=== PATIENT | female | born 1950 | race Caucasian/White ===

== ENCOUNTER 2018-02-12 07:49 | Day surgery (SDC) | payer OTHER ==
[2018-02-12] MEDS ORDERED: IOHEXOL 350 MG/ML 100 ML BTL (for Cath Lab) OTHER (07:50)
[2018-02-12] MEDS: IOHEXOL 350 MG/ML 50 ML BTL (for RAD DIAG) IVCONTRAST (07:50)
[2018-02-12] MEDS ORDERED: SODIUM CHLOR 0.9% 1000 ML INJ 1,000 ML IV (08:30)
[2018-02-12 09:16] LABS: AUTOMATED NEUTROPHIL # 6.8 TH/MM3 (1.8-7.7); BASOPHIL # 0.1 TH/MM3 (0-0.2); BASOPHIL % 0.6 % (0.0-2.0); EOSINOPHIL # 0.2 TH/MM3 (0-0.4); EOSINOPHIL % 1.8 % (0.0-4.0); HEMATOCRIT 38.9 % (35.0-46.0); HEMO FLAGS DIFF FINAL; HEMOGLOBIN 12.7 GM/DL (11.6-15.3); LYMPH % 21.3 % (9.0-44.0); LYMPHOCYTE # 2.1 TH/MM3 (1.0-4.8); MEAN CELL VOLUME 87.7 FL (80.0-100.0); MEAN CORPUSCULAR HEMOGLOBIN 28.7 PG (27.0-34.0); MEAN CORPUSCULAR HGB CONC 32.8 % (32.0-36.0); MEAN PLATELET VOLUME 7.2 FL (7.0-11.0); MONO % 6.2 % (0.0-8.0); MONOCYTE # 0.6 TH/MM3 (0-0.9); NEUT % 70.1 % (16.0-70.0); PLATELET COUNT 289 TH/MM3 (150-450); RED BLOOD COUNT 4.43 MIL/MM3 (4.00-5.30); RED CELL DISTRIBUTION WIDTH 15.6 % (11.6-17.2); WHITE BLOOD COUNT 9.6 TH/MM3 (4.0-11.0)
[2018-02-12 09:22] LABS: APTT (PATIENT) 25.9 SEC (24.3-30.1)
[2018-02-12] MEDS ORDERED: HEPARIN-NS/PF FLUSH BAG 2,000 ML IV FLUSH (09:28)
[2018-02-12] MEDS: HEPARIN SODIUM - IV 10,000 UNITS/10 ML VIAL (09:29)
[2018-02-12 09:30] LABS: ANION GAP 8 MEQ/L (5-15); BICARBONATE 30.1 MEQ/L (21.0-32.0); BLOOD UREA NITROGEN 19 MG/DL (7-18); CALCIUM 9.1 MG/DL (8.5-10.1); CHLORIDE 104 MEQ/L (98-107); CREATININE 0.45 MG/DL (0.50-1.00); GLOMERULAR FILTRATION RATE 139 ML/MIN (>89); GLUCOSE,RANDOM 94 MG/DL (74-106); POTASSIUM 3.9 MEQ/L (3.5-5.1); SODIUM (NA) 142 MEQ/L (136-145)
[2018-02-12] MEDS: NITROGLYCERIN INJ 5 ML (09:31)
[2018-02-12] MEDS: MIDAZOLAM HCL 2 MG/2 ML VIAL (09:43)
[2018-02-12] MEDS: hydrALAZINE HCL 20 MG/ML VIAL (10:59)
[2018-02-12] MEDS ORDERED: MISC INFORMATION XX (11:30)
[2018-02-12 12:17] LABS: ALBUMIN 4.1 GM/DL (3.4-5.0)
[2018-02-12 17:36] LABS: BILIRUBIN, URINE NEG (NEG); BLOOD, URINE NEG (NEG); COMMENT (UR) CULT NOT INDICATED; CULTURE IF INDICATED CULT NOT INDICATED; GLUCOSE,URINE NEG (NEG); KETONE, URINE NEG (NEG); NITRITE,URINE NEG (NEG); SQUAMOUS EPITHELIAL CELL URINE <1 /hpf (0-5); URINE COLOR LIGHT-YELLOW (YELLW/STRAW); URINE LEUKOCYTE ESTERASE SMALL (NEG)
[2018-02-12 19:14] LABS: MRSA PCR SURVEILLANCE MRSA NOT DETECTED (NOT DETECT)
== END 2018-02-12 18:29 | disposition home or self-care (01) ==
LOC: HDOC 07:49 → HDIC 07:51 → HDOC 18:29
DX: I25.10 Atherosclerotic heart disease of native coronary artery without angina pectoris (principal); I35.0 Nonrheumatic aortic (valve) stenosis; I27.20 Pulmonary hypertension, unspecified; I34.0 Nonrheumatic mitral (valve) insufficiency; I65.29 Occlusion and stenosis of unspecified carotid artery; M85.80 Other specified disorders of bone density and structure, unspecified site; E78.5 Hyperlipidemia, unspecified; G20 Parkinson's disease; I45.10 Unspecified right bundle-branch block; Z95.1 Presence of aortocoronary bypass graft; Z96.651 Presence of right artificial knee joint
CPT/HCPCS: 71046; 74174; 80048; 81001; 82040; 82810; 85025; 85610; 85730; 86850; 86900; 86901; 87641; 93005; 93461; 94010; 99152; 99153

== ENCOUNTER → 2018-03-31 | Outpatient (CLI) | payer OTHER ==
[~2018-03-31] MED LIST: AMLO2.5T PO; ASPI81TA23 PO; CARB25TA9 PO; ISOS30TA3 PO; NIAC500 PO; NITR0.4S SL; PRAM0.25 PO
[2018-03-31 12:59] LABS: AUTOMATED NEUTROPHIL # 8.2 TH/MM3 (1.8-7.7); BASOPHIL # 0.1 TH/MM3 (0-0.2); BASOPHIL % 0.6 % (0.0-2.0); EOSINOPHIL # 0.2 TH/MM3 (0-0.4); EOSINOPHIL % 1.4 % (0.0-4.0); HEMATOCRIT 38.8 % (35.0-46.0); HEMOGLOBIN 12.5 GM/DL (11.6-15.3); LYMPHOCYTE # 2.3 TH/MM3 (1.0-4.8); MEAN CELL VOLUME 90.1 FL (80.0-100.0); MEAN CORPUSCULAR HEMOGLOBIN 29.2 PG (27.0-34.0); MEAN CORPUSCULAR HGB CONC 32.4 % (32.0-36.0); MEAN PLATELET VOLUME 7.5 FL (7.0-11.0); MONO % 7.1 % (0.0-8.0); MONOCYTE # 0.8 TH/MM3 (0-0.9); NEUT % 70.9 % (16.0-70.0); PLATELET COUNT 329 TH/MM3 (150-450); RED CELL DISTRIBUTION WIDTH 14.9 % (11.6-17.2); WHITE BLOOD COUNT 11.5 TH/MM3 (4.0-11.0)
[2018-03-31 13:12] LABS: PROTHROMBIN TIME - PATIENT 10.5 SEC (9.8-11.6)
[2018-03-31 13:51] LABS: BICARBONATE 29.1 MEQ/L (21.0-32.0); CREATININE 0.5 MG/DL (0.50-1.00)
== END ==
LOC: CLAB 12:27
PROVIDERS: ATTEND Internal Medicine
DX: Z01.812 Encounter for preprocedural laboratory examination (principal); I35.0 Nonrheumatic aortic (valve) stenosis
CPT/HCPCS: 36415; 80048; 85025; 85610; 86850; 86900; 86901

== ENCOUNTER 2018-04-02 10:11 | Inpatient (IN) | payer OTHER, MEDICARE ==
[~2018-04-02] VITALS: Ht 147.3 cm; Wt 79.0 kg
[2018-04-02] VITALS (7 sets, daily range): BP systolic 103–165; BP diastolic 45–85; PULSE 69–113; RESP 16–22; TEMP 97.4–98.9; O2SAT 94–99
[2018-04-02] MEDS ORDERED: HEPARIN SODIUM - IV 10,000 UNITS/10 ML VIAL ONE (10:53)
[2018-04-02] MEDS ORDERED: PROTAMINE SULFATE 50 MG/5 ML VIAL ONE (10:53)
[2018-04-02] MEDS ORDERED: ASPIRIN 325 MG TAB PO SCH (11:00)
[2018-04-02] MEDS ORDERED: CHLORHEXIDINE GLUCONATE 2 % 1 PACK (2 CLOTHS) TOPICAL PRN ×2 (11:00)
[2018-04-02] MEDS ORDERED: ceFAZolin 2 GM PREMIX 50 ML IV PRN (11:00)
[2018-04-02] MEDS ORDERED: SODIUM CHLORID 0.9% 500 ML IV PRN (11:00)
[2018-04-02] MEDS ORDERED: POVIDONE IODINE 5% (ANTISEPSIS KIT) 4 APPLICATIONS EACH NARE PRN (11:00)
[2018-04-02] MEDS ORDERED: POVIDONE IODINE 5% (ANTISEPSIS KIT) EACH NARE PRN (11:00)
[2018-04-02] MEDS ORDERED: LACTATED RINGER'S 1000 ML IV PRN (11:00)
[2018-04-02] MEDS ORDERED: METOPROLOL TARTRATE 25 MG TAB PO PRN (11:00)
[2018-04-02] MEDS ORDERED: MUPIROCIN 2% OINT 1 APPLIC/GM SYRINGE EACH NARE PRN (11:00)
[2018-04-02] MEDS ORDERED: GLYCOPYRROLATE 1 MG/5 ML SYRINGE IV PUSH ONE (12:00)
[2018-04-02] MEDS ORDERED: LIDOCAINE HCL 1% PF 5 ML SYRINGE OTHER ONE (12:00)
[2018-04-02] MEDS ORDERED: SODIUM CHLORID 0.9% 500 ML INJ 1,000 ML IV ONE (12:00)
[2018-04-02] MEDS ORDERED: NORMOSOL R INJ 1,000 ML IV ONE (12:00)
[2018-04-02] MEDS ORDERED: SODIUM CHLOR 0.9% 250 ML INJ 250 ML IV ONE (12:00)
[2018-04-02] MEDS ORDERED: PHENYLEPH/NS 1000 MCG/10 ML SYR IV ONE (12:00)
[2018-04-02] MEDS ORDERED: LACTATED RINGER'S 1000 ML INJ 1,000 ML IV ONE (12:00)
[2018-04-02] MEDS ORDERED: ROCURONIUM INJ 50 MG/5 ML SYRINGE IV PUSH ONE (12:00)
[2018-04-02] MEDS ORDERED: NEOSTIGMINE 5 MG/5 ML SYRINGE IV PUSH ONE (12:00)
[2018-04-02] MEDS ORDERED: PROPOFOL 200 MG/20 ML AMP IV ONE (12:00)
[2018-04-02] MEDS ORDERED: IOHEXOL 350 MG/ML 100 ML BTL (for Cath Lab) OTHER ONE (12:48)
[2018-04-02] MEDS ORDERED: IOHEXOL 350 MG/ML 50 ML BTL (for Cath Lab) OTHER ONE (12:48)
--- NOTE | 2018-04-02 13:43 | MH ---
cc: Osorio Villalta MD DATE OF ADMISSION: 04/02/2018 INDICATION: Severe aortic stenosis. HISTORY OF PRESENT ILLNESS: This is a 67-year-old female with severe aortic stenosis and coronary artery disease with prior coronary artery bypass surgery. She follows in the outpatient setting with a [facility] and last saw Dr. Diego, who performed a heart catheterization. She was referred for consideration of repeat sternotomy with aortic valve replacement, but given high risk features, was recommended for transcatheter aortic valve replacement. She is now here for a scheduled procedure. PAST MEDICAL HISTORY: Aortic stenosis, coronary artery disease, carotid stenosis, asthma, hyperlipidemia, mild mitral regurgitation, osteoarthritis, osteopenia, right bundle branch block. PAST SURGICAL HISTORY: Coronary artery disease with coronary artery bypass surgery x2. ALLERGIES: ATORVASTATIN, ZITHROMAX. MEDICATIONS: 1. Amlodipine. 2. Aspirin. 3. Sinemet. 4. Isosorbide. 5. Nitroglycerin. 6. Pramipexole. FAMILY HISTORY: Denies any family history of early cardiac disease or sudden cardiac . SOCIAL HISTORY: Denies any alcohol, tobacco or drug use. REVIEW OF SYSTEMS: A 12-point review of systems was performed, negative unless otherwise noted in History Of Present Illness. PHYSICAL EXAMINATION: GENERAL: Alert and oriented x3, in no acute distress. HEENT: Shows pupils reactive to light and accommodation. Extraocular movements intact. NECK: No elevation in jugular venous distention. No thyromegaly or lymphadenopathy. No carotid bruits. LUNGS: Clear to auscultation bilaterally. CARDIOVASCULAR: Regular rhythm without murmurs, rubs or gallops. ABDOMEN: Nontender, nondistended with good bowel sounds. No hepatosplenomegaly. EXTREMITIES: Show no clubbing, cyanosis or edema. Good peripheral pulses. NEUROLOGIC: Cranial nerves intact. Motor, sensory grossly intact. PREOPERATIVE LABORATORY WORKUP: STS score 3.4%. BMI 36.5. She has 2/4 for frailty score. Electrocardiogram shows right bundle branch block and sinus rhythm. Pulmonary function tests: FEV1 of 0.93, performed on 02/12/2018 consistent with severely reduced lung disease. Echocardiogram from 11/18/2017 shows a mean gradient of 30 mmHg with a calculated aortic valve area of 0.9 cm2 and mean aortic valve gradient per cardiac catheterization was 45 mmHg. Cardiac catheterization shows widely patent bypass grafts with severe [place] 2-vessel coronary artery disease. CT analysis from 02/12/2018 shows a short annulus diameter of 19.7, long annulus diameter of 22.5 mm, annular area of 350 mm. Sinus of Valsalva diameter 28.8 mm, sinotubular junction 27.2 mm. Left coronary height is 10 mm. Right coronary height is 15.2 mm. Minimal luminal diameter for iliac arteries are on the right 6.8 mm, on the left, 6.4 mm. ASSESSMENT: 1. Severe aortic valve stenosis. 2. History of coronary artery disease. PLAN: The patient is considered intermediate risk for aortic valve replacement, according to STS, frailty and comorbidities. We will plan for an Flores BING S3, 23 mm bioprosthetic transcatheter aortic valve replacement through a right common femoral artery approach. Risks, benefits, and alternatives were discussed with the patient. The patient understood and consented to the procedure. MD XIMENA Summers/SB , 01:18 PM , 01:42 PM
[2018-04-02] MEDS ORDERED: IOHEXOL 350 MG/ML 100 ML BTL (for RAD DIAG) IVCONTRAST ONE (14:25)
--- NOTE | 2018-04-02 14:36 | PD.OP ---
cc: Amara Naylor MD; Maritza Cortes MD; Osorio Villalta MD Operative Report Date of Surgery: Apr 02, 2018 Preoperative Diagnosis: Postoperative Diagnosis: Procedure: 1. Transcatheter Aortic Valve Replacement (TAVR) with an Flores 23 mm Zak 3 Tissue Valve. 2. Balloon Aortic Valvuloplasty 3. Aortogram. 4. Percutaneous Bilateral Common Femoral Artery Access 5. Perclose closure of Right Common Femoral artery. 6. Vascade closure of Left Common Femoral artery. 7. Fluoroscopy Surgeon: Maritza Villalta Powerhouse Mechanic Apprentice(s): None Operation and Findings: PREOPERATIVE DIAGNOSIS: 1. Severe Symptomatic Aortic stenosis. 2. CHF 3. Coronary Artery Disease - s/p CABG 4. Mild Aortic Insufficiency POSTOPERATIVE DIAGNOSIS: Same OPERATION PERFORMED: 1. Transcatheter Aortic Valve Replacement (TAVR) with an Flores 23 mm Zak 3 Tissue Valve. 2. Balloon Aortic Valvuloplasty 3. Aortogram. 4. Percutaneous Bilateral Common Femoral Artery Access 5. Perclose closure of Right Common Femoral artery. 6. Vascade closure of Left Common Femoral artery. 7. Fluoroscopy SURGEON: Maritza Cortes MD CO-SURGEON: Osorio Villalta MD REAL ESTATE INVESTOR SURGEON: None COMMUTATOR PRESSER: ROCIO Gan MD ANESTHESIA: GETA PROCEDURE: The risks, benefits, complications, treatment options, and expected outcomes were discussed with the patient. The possibilities of reaction to medication, pulmonary aspiration, perforation of viscus, bleeding, recurrent infection, the need for additional procedures, failure to diagnose a condition, and creating a complication requiring transfusion or operation were discussed with the patient. The patient concurred with the proposed plan, giving informed consent. The site of surgery properly noted/marked. The patient was taken to the hybrid operating room and the procedure verified as Transcatheter Aortic Valve Replacement. A Time Out was held and the above information confirmed. Standard monitoring lines and Tong catheter were placed. General anesthesia was induced. The patient was prepped and draped in a sterile fashion. Initially, the left femoral arterial access was acquired using a Seldinger percutaneous technique. The details of this procedure were dictated under separate note by cardiology. Once a pigtail was positioned in the aortic annulus and a temporary transvenous pacemaker wire was placed in the right ventricular apex and tested, the right femoral artery was accessed using a needle followed by a guidewire under fluoroscopic guidance. The patient was heparinized and two Perclose devices deployed for later closure. Serial dilators were used to dilate the left femoral artery to 14 Setswana caliber. The Flores sheath was then inserted into the external iliac artery up to the distal abdominal aorta. Arch aortography was performed to define the implant view. A balloon aortic valvuloplasty was then performed using a 20 x 4 balloon with rapid pacing. A 23 Flores Zak 3 transcatheter aortic valve was then positioned in the annulus and deployed with the patient being rapidly paced. Following deployment , the valve apparatus was withdrawn and arch aortography and KAM were performed to assess the valve. The valve had no significant perivalvular leaks. Gradients were then measured and the sheath was removed with securing the Perclose sutures for hemostasis. Protamine was administered. The left Arterial access sites were closed using the Vascade device. Sterile dressings were placed. At the end of the operation, all sponge, instruments, and needle counts were correct. The patient was transferred to the CVICU in stable condition. Findings: Trace PVL Implants: 23 Zak 3 tissue valve Complications: Heart block Disposition: to CVICU in stable condition Maritza Cortes MD Apr 02, 2018 14:36
[2018-04-02] MEDS ORDERED: SODIUM CHLOR 0.9% 1000 ML INJ 1,000 ML IV SCH (14:46)
[2018-04-02] MEDS ORDERED: GLUCAGON 1 MG/ML VIAL OTHER PRN (15:00)
[2018-04-02] MEDS ORDERED: ATROPINE SULFATE 1 MG/ML VIAL IV PUSH PRN (15:00)
[2018-04-02] MEDS ORDERED: MISC INFORMATION OTHER SCH (15:00)
[2018-04-02] MEDS ORDERED: ACETAMINOPHEN 325 MG TAB PO PRN (15:00)
[2018-04-02] MEDS ORDERED: DEXTROSE 50% IN WATER 50 ML VIAL(D50) IV PUSH PRN (15:00)
[2018-04-02] MEDS ORDERED: CLOPIDOGREL 300 MG TAB PO ONE (15:00)
[2018-04-02] MEDS ORDERED: MIDAZOLAM HCL 2 MG/2 ML VIAL ONE (15:04)
--- NOTE | 2018-04-02 15:49 | RADRPT ---
EXAM DATE: 04/02/2018 3:43 PM EDT AGE/SEX: 67 years / Female INDICATIONS: Shortness of breath. CLINICAL DATA: This is the patient's initial encounter. Patient reports that signs and symptoms have been present for 1 day and indicates a pain score of 2/10. MEDICAL/SURGICAL HISTORY: Cardiovascular disease. Pacemaker. CABG. COMPARISON: No prior exams available for comparison. FINDINGS: A single AP view of the chest demonstrates the lungs to be symmetrically aerated without evidence of mass, infiltrate or effusion. Mild cardiomegaly. Central line in good position. Sternal wires previo us bypass are noted. Osseous structures are intact. CONCLUSION: Mild cardiomegaly without failure. Electronically signed by: Bravo Samaniego MD 04/02/2018 3:48 PM EDT
--- NOTE | 2018-04-02 15:54 | PD.CONS ---
[facility] Service Critical Care Medicine Consult Requested By Dr. Villalta Reason for Consult perioperative management of medical comorbidities Primary Care Physician Jessica Jin MD History of Present Illness This is a 67-year-old female with a history of severe aortic stenosis who presents for elective transcatheter aortic valve replacement. She underwent uncomplicated procedure via common iliac access. Intraoperatively she did go into third-degree heart block. Elective physiology consult was obtained. She arrives to the CVICU extubated but arousing from anesthesia. Due to her somnolence arousing from anesthesia a full review of systems is unobtainable. Limited review systems is negative for sore throat, chest pain, shortness of breath, nausea, vomiting, headache. She does endorse having difficulty laying still and keeping her legs still. Remainder of the review of systems is negative unless otherwise stated. Review of Systems ROS Limited review of systems is negative unless stated in the HPI. ROS is limited by arousing from anesthesia. Past Family Social History Allergies: Coded Allergies: azithromycin (Unverified Allergy, Severe, ANGIOEDEMA, 04/02/18) atorvastatin (Verified Allergy, Intermediate, 04/02/18) Past Medical History Severe symptomatic aortic stenosis Coronary artery disease Carotid stenosis Asthma Hyperlipidemia Mild mitral regurgitation Osteoarthritis Osteopenia Right bundle branch block Parkinson's disease Past Surgical History Prior CABG 2 Reported Medications Pramipexole (Pramipexole Dihydrochloride) 0.25 Mg Tab 0.25 Mg PO TID Nitrostat SL (Nitroglycerin) 0.4 Mg Subl 0.4 Mg SL DIRECTED PRN 1 tablet under the tongue as needed for chest pain. Repeat every 5 minutes for a total of 3 DOSES or call 911 if NO relief. Isosorbide Mononitrate ER (Isosorbide Mononitrate) 30 Mg Kerline 30 Mg PO DAILY Niaspan (Niacin) 500 Mg Tab 500 Mg PO HS Carbidopa-Levodopa 25-100 Mg Tab 1 Tab PO Q8HR Aspirin EC (Aspirin) 81 Mg Tabdr 81 Mg PO DAILY Amlodipine (Amlodipine Besylate) 2.5 Mg Tab 2.5 Mg PO DAILY Active Ordered Medications See MAR Family History No family history of cardiac disease or sudden cardiac Social History Denies tobacco, EtOH, other drugs. Physical Exam Vital Signs Vital Signs Date Time Temp Pulse Resp B/P (MAP) Pulse Ox O2 Delivery O2 Flow Rate FiO2 04/02/18 10:55 98.0 91 18 119/76 (90) 95 Physical Exam GENERAL: Middle-aged female who appears much older than stated age, lying in bed , arousing from anesthesia HEENT: Normocephalic. Atraumatic. Pupils equal, round, reactive, conjugate. Mucous membranes are moist NECK: Trachea is midline. There is no JVD. right IJ introducer sheath with transvenous pacer in place, site is clean and dry, dressing intact. CHEST: unlabored. equal chest rise. nc o2. CARDIOVASCULAR: normal rate, regular rhythm. Transvenous pacer is set VVI at a backup rate of 60. She is intermittently paced. Underlying rhythm appears to be third-degree AV block with a ventricular rate in the 40s. ABDOMEN: Soft, nontender, nondistended. No guarding. MUSCULOSKELETAL: Pulses 2+. No peripheral edema. bilateral groin sites are clean and dry, no evidence of hematoma, dressing intact. distal LE pulses are Dopplerable. NEUROLOGICAL: RASS -2. Arousing from anesthesia. follows commands. moves all extremities. no focal deficits. Assessment and Plan Assessment and Plan Assessment: 67-year-old female postop day 0 status post transcatheter aortic valve replacement. Clinically on pathway with the exception of new third- degree AV block. Will await elective physiology consultation she may need permanent pacemaker versus EP study. s/p TAVR 04/02 via common iliac access - anticoagulation per Dr. Villalta - [facility] - close uop monitoring - OOB after flat time HTN - tonight prn clevidepine for goal sbp < 180 - in the AM, transition to home meds 3rd degree AVB - EP consultation - continue transvenous pacer VVI @ 60 CAD - continue ASA Hyperlipidemia - continue home niaspan Parkinson's - continue home sinemet pulmonary toilet OOB advance diet unless EP needs patient NPO for procedure Critical care medicine will continue to follow as long as patient remains in the CVICU. Zuhair Steel MD Apr 02, 2018 15:54
[2018-04-02] MEDS ORDERED: ACETAMINOPHEN 1000 MG/100 ML 100 ML IV ONE (16:00)
--- NOTE | 2018-04-02 16:45 | MA ---
cc: Osorio Villalta MD DATE: 04/02/2018 DATE OF OPERATIVE PROCEDURE: 04/02/2015 INDICATION: Severe aortic valve stenosis. SALES SERVICE PROFESSIONAL: Angel Villalta MD, [facility] PRIMARY SCREED PERSON: Dr. Maritza Cortes. PROCEDURES PERFORMED: 1. Fluoroscopy with interpretation. 2. Left heart catheterization. 3. Ascending aortography. 4. Temporary transvenous pacemaker placement. 5. Transesophageal echocardiogram. 6. Aortic balloon valvuloplasty. 7. Transcatheter aortic valve replacement with an Flores BING S3, 23 mm bioprosthetic valve. METHOD: Risks, benefits and alternatives were discussed with the patient. The patient understood and consented to the procedure. The patient was brought into the catheterization lab, placed on the catheterization table. Bilateral groins were prepped and draped in the usual sterile fashion. The left groin was anesthetized with 2% lidocaine. The left common femoral artery was cannulated. A 5-German, 11 cm sheath was placed without difficulty. The right common femoral artery was cannulated under fluoroscopic and angiographic guidance. A micropuncture sheath was placed, followed by 8-German sheath and then followed by the 14 German Flores delivery sheath to the level of the descending aorta. TEMPORARY TRANSVENOUS PACEMAKER PLACEMENT: Right internal jugular vein was placed and a temporary transvenous pacemaker advanced to the right ventricular apex. Good pacing and capture was confirmed. TRANSESOPHAGEAL ECHOCARDIOGRAM: Transesophageal echocardiogram will be reported separately. ASCENDING AORTOGRAPHY: A 5-German angled pigtail catheter was advanced to the noncoronary cusp and a view angle of left anterior oblique 3 and 22 cranial was utilized for Parallax of the three aortic cusps. The ascending aorta was not significantly dilated. AORTIC BALLOON VALVULOPLASTY: A 6-German AL1 catheter was advanced to the ascending aorta. An Amplatz Super Stiff wire was advanced across the aortic valve. The AL1 catheter was advanced across the aortic valve. A 260 cm standard J-wire was then advanced into the left ventricle and a pigtail catheter 5-German was then advanced into the left ventricular apex and switched out for a 0.03-inch Confida Bumprtronic wire. A 20 mm x 40 mm Flores aortic valvuloplasty balloon was then advanced across the aortic valve. Balloon inflation was performed with rapid ventricular pacing at 180 beats per minute. Repeat transesophageal echocardiogram showed moderate aortic regurgitation and no pericardial effusion. TRANSCATHETER AORTIC VALVE REPLACEMENT: Flores S3, 23 mm valve was then prepped and advanced into the delivery sheath to the descending aorta. The valve was then advanced across the aortic valve and confirmed appropriate positioning. The valve was then deployed. Repeat transesophageal echocardiogram showed no paravalvular leak with no significant gradient present. The patient tolerated the procedure well. The right groin was closed with 2 Perclose device and the left groin closed with a 5-German VASCADE device. Heparin was administered throughout the entire procedure to maintain appropriate anticoagulation. POST-VALVE DEPLOYMENT INTRAOPERATIVE TRANSESOPHAGEAL ECHOCARDIOGRAM: Aortic valve area of 1.4 cm2. Post-implant mean aortic gradient 4 mmHg. Post-implant peak velocity 1.44 meters per second and there was no aortic insufficiency or paravalvular leak noted. CONCLUSIONS: 1. Successful transcatheter aortic valve replacement with an Flores S3 bioprosthetic aortic valve. 2. Successful aortic valvuloplasty. PLAN: The patient will be monitored closely for any postprocedural complications. Hopefully, this will translate well to symptomatic improvement. The patient did have transient complete heart block requiring intermittent pacing. We will consult Electrophysiology for consideration of a permanent pacemaker. We will obtain a limited transthoracic echocardiogram tomorrow morning. MD XIMENA Summers/SB , 03:38 PM , 04:44 PM
--- NOTE | 2018-04-02 17:09 | PD.PROCEDR ---
Procedure Note Procedure Procedure: Transesophageal Echocardiography Diagnosis: Severe aortic stenosis Indications: Perioperative planning for transcatheter aortic valve replacement Consent: Obtained Anesthesia: General endotracheal anesthesia Description of the Procedure: The patient was sedated and mechanically ventilated. The echo probe was inserted easily and without resistance. At the conclusion of the procedure, the echo probe was removed. Please see detailed echocardiogram report for formal findings. Preliminary Findings (not confirmed): pre-procedure: 1) mildly depressed LV systolic function 2) grossly normal RV function 3) severe aortic stenosis 4) mild aortic regurgitation 5) mild mitral regurgitation 6) no pericardial effusion 7) no evidence of intra-atrial shunting by color flow Doppler Post-procedure: 1) s/p successful placement of transcatheter aortic valve 2) no evidence of bioprosthetic valve stenosis 3) no perivalvular leak 4) no pericardial effusion The patient tolerated the procedure well with no hemodynamic instability. There were no immediate complications noted. There was minimal EBL. I personally performed the procedure. Zuhair Steel MD Apr 02, 2018 17:09
[2018-04-02 17:13] LABS: HEMATOCRIT 36.8 % (35.0-46.0); MEAN CELL VOLUME 89.1 FL (80.0-100.0); MEAN CORPUSCULAR HEMOGLOBIN 29.1 PG (27.0-34.0); MEAN CORPUSCULAR HGB CONC 32.6 % (32.0-36.0); MEAN PLATELET VOLUME 7.6 FL (7.0-11.0); PLATELET COUNT 274 TH/MM3 (150-450); RED BLOOD COUNT 4.13 MIL/MM3 (4.00-5.30); WHITE BLOOD COUNT 16.2 TH/MM3 (4.0-11.0)
[2018-04-02 17:24] LABS: INTERNATIONAL NORMALIZED RATIO 1.1 RATIO; PROTHROMBIN TIME - PATIENT 10.9 SEC (9.8-11.6)
[2018-04-02 17:39] LABS: CALCIUM 7.9 MG/DL (8.5-10.1); CREATININE 0.5 MG/DL (0.50-1.00)
[2018-04-02] MEDS: PRAMIPEXOLE DIHYDROCHLORIDE 0.25 MG TAB PO SCH (18:57)
--- NOTE | 2018-04-02 19:55 | EKG ---
Date Performed: 04/02/2018 Time Performed: 11:11:38 PTAGE: 67 years EKG: Sinus tachycardia. Right bundle branch block Abnormal ECG PREVIOUS TRACING : 02/12/2018 09.15 Since the previous tracing, no significant change noted DOCTOR: Karuna Gregg Interpretating Date/Time 04/02/2018 19:54:45
[2018-04-02] MEDS: CARBIDOPA/LEVODOPA 25 MG/100 MG TAB PO SCH (20:59)
[2018-04-02] MEDS: NIACIN 500 MG EXTENDED RELEASE TAB PO SCH (20:59)
[2018-04-02] MEDS: ACETAMINOPHEN 1000 MG/100 ML 100 ML IV PRN (21:00)
[2018-04-02] MEDS ORDERED: POTASSIUM PHOSPHATE MONOBASIC 500 MG TAB PO PRN (21:15)
[2018-04-02] MEDS ORDERED: POTASSIUM CHLOR 20 MEQ PREMIX 100 ML IV PRN ×2 (21:15)
[2018-04-02] MEDS ORDERED: POTASSIUM CHLORIDE 20 MEQ CONTROLLED RELEASE TAB PO ONE (21:15)
[2018-04-02] MEDS ORDERED: POTASSIUM CHLOR 40 MEQ PREMIX 100 ML IV PRN ×2 (21:15)
[2018-04-02] MEDS ORDERED: MAGNESIUM SULFATE INJ 2 GM in SODIUM CHLORIDE 0.9% INJ 96 ML IV PRN (21:15)
[2018-04-02] MEDS ORDERED: MAGNESIUM SULFATE INJ 4 GM in SODIUM CHLORIDE 0.9% INJ 92 ML IV PRN (21:15)
[2018-04-02] MEDS ORDERED: MAGNESIUM SULFATE 1 GM PREMIX 100 ML IV ONE (21:15)
[2018-04-02] MEDS ORDERED: POTASSIUM CHLORIDE 25 MEQ EFFERVESCENT TAB PO PRN (21:15)
[2018-04-02] MEDS ORDERED: MAGNESIUM OXIDE 400 MG TAB PO PRN (21:15)
[2018-04-02] MEDS ORDERED: SODIUM PHOSPHATE INJ 30 MMOL in SODIUM CHLOR 0.9% 250 ML INJ 240 ML IV PRN (21:15)
[2018-04-02] MEDS ORDERED: POTASSIUM PHOSPHATE MONOBASIC 500 MG TAB PO/TUBE PRN (21:15)
[2018-04-02] MEDS ORDERED: POTASSIUM PHOSPHATE INJ 30 MMOL in SODIUM CHLOR 0.9% 250 ML INJ 250 ML IV PRN (21:15)
[2018-04-02] MEDS: BENZOCAINE-MENTHOL (SUGAR FREE) 15 MG-3.6 MG LOZENGE BUCCAL PRN (22:15)
[2018-04-02] MEDS: POTASSIUM CHLOR 10 MEQ PREMIX 100 ML IV SCH ×2 (22:15→22:32)
[2018-04-03] VITALS (16 sets, daily range): BP systolic 94–155; BP diastolic 50–83; PULSE 72–120; RESP 16–22; TEMP 97.6–98.4; O2SAT 92–100
[2018-04-03] MEDS: POTASSIUM CHLOR 10 MEQ PREMIX 100 ML IV SCH (00:23)
[2018-04-03] MEDS: SODIUM CHLOR 0.9% 1000 ML 1,000 ML IV SCH ×3 (03:00→19:00)
[2018-04-03] MEDS: ACETAMINOPHEN 1000 MG/100 ML 100 ML IV PRN ×2 (03:37→18:24)
[2018-04-03] MEDS: BENZOCAINE-MENTHOL (SUGAR FREE) 15 MG-3.6 MG LOZENGE BUCCAL PRN (03:38)
[2018-04-03 04:35] LABS: HEMATOCRIT 34.5 % (35.0-46.0); HEMOGLOBIN 11.4 GM/DL (11.6-15.3); MEAN CELL VOLUME 88.4 FL (80.0-100.0); MEAN CORPUSCULAR HEMOGLOBIN 29.1 PG (27.0-34.0); MEAN CORPUSCULAR HGB CONC 32.9 % (32.0-36.0); MEAN PLATELET VOLUME 7.2 FL (7.0-11.0); PLATELET COUNT 235 TH/MM3 (150-450); RED BLOOD COUNT 3.91 MIL/MM3 (4.00-5.30); RED CELL DISTRIBUTION WIDTH 14.8 % (11.6-17.2); WHITE BLOOD COUNT 12.6 TH/MM3 (4.0-11.0)
[2018-04-03 04:52] LABS: BICARBONATE 29.5 MEQ/L (21.0-32.0); CALCIUM 8.1 MG/DL (8.5-10.1); CREATININE 0.34 MG/DL (0.50-1.00); MAGNESIUM 1.9 MG/DL (1.5-2.5); PHOSPHORUS 2.8 MG/DL (2.5-4.9)
[2018-04-03] MEDS: CARBIDOPA/LEVODOPA 25 MG/100 MG TAB PO SCH ×3 (06:36→22:14)
--- NOTE | 2018-04-03 07:49 | PD.CARD.PN ---
Subjective Subjective Remarks RN at bedside. Doing well overnight. NSR overnight. EKG this a.m. with NSR and RBBB. Going for EP study later this morning. Patient denies any chest pain or shortness of breath. Has some throat and right groin soreness. (Georges Mars) Objective Medications Current Medications Medications (Trade) Dose Ordered Sig/Phong Route Start Time Stop Time Status Last Admin Sodium Chloride 1,000 ml @ 125 mls/hr Q8H IV 04/02/18 11:00 Cefazolin Sodium/ Dextrose 50 ml @ 100 mls/hr [facility] PRN IV 04/02/18 11:00 04/05/18 10:59 04/02/18 13:28 (Betadine 5% Antisepsis Kit) 1 applic [facility] PRN EACH NARE 04/02/18 11:00 04/05/18 10:59 (Bactroban Nasal 2% Oint) 1 applic [facility] PRN EACH NARE 04/02/18 11:00 04/05/18 10:59 (Chlorhexidine 2% Cloth) 3 pack [facility] PRN TOPICAL 04/02/18 11:00 04/05/18 10:59 04/02/18 10:59 (Aspirin) 325 mg [facility] PO 04/02/18 11:00 04/05/18 10:59 Lactated Ringer's 1,000 ml @ 30 mls/hr Q24H PRN IV 04/02/18 11:00 04/05/18 10:59 Sodium Chloride 500 ml @ 30 mls/hr [id number] PRN IV 04/02/18 11:00 04/05/18 10:59 (Lopressor) 25 mg [facility] PRN PO 04/02/18 11:00 04/05/18 10:59 (Betadine 5% Antisepsis Kit) 1 applic [facility] PRN EACH NARE 04/02/18 11:00 04/05/18 10:59 04/02/18 10:58 (Chlorhexidine 2% Cloth) 3 pack [facility] PRN TOPICAL 04/02/18 11:00 04/05/18 10:59 (Cepacol Extra Lior (Sugar Free)) 1 lozenge Q3H PRN BUCCAL 04/02/18 15:00 04/03/18 14:59 04/03/18 03:38 (Atropine Inj) 0.5 mg UNSCH PRN IV PUSH 04/02/18 15:00 04/03/18 14:59 Miscellaneous Information 1 UNSCH X1 OTHER 04/02/18 15:00 04/04/18 14:59 (Aspirin Chew) 81 mg DAILY PO 04/03/18 09:00 (Plavix) 75 mg DAILY PO 04/03/18 09:00 (D50w (Vial) Inj) 50 ml UNSCH PRN IV PUSH 04/02/18 15:00 (Glucagon Inj) 1 mg UNSCH PRN OTHER 04/02/18 15:00 (Norvasc) 2.5 mg DAILY PO 04/03/18 09:00 (Sinemet 25-100 Mg) 1 tab Q8HR PO 04/02/18 22:00 04/03/18 06:36 (Imdur) 30 mg DAILY PO 04/03/18 09:00 (Slo-Niacin) 500 mg HS PO 04/02/18 21:00 04/02/18 20:59 (Mirapex) 0.25 mg TID PO 04/02/18 18:00 04/02/18 18:57 Clevidipine 50 ml @ 2 mls/hr TITRATE PRN IV 04/02/18 16:00 04/02/18 15:25 Acetaminophen 100 ml @ 400 mls/hr Q6H PRN IV 04/02/18 20:15 04/03/18 03:37 Potassium Chloride 100 ml @ 50 mls/hr Q2H PRN IV 04/02/18 21:15 Potassium Chloride 100 ml @ 50 mls/hr Q2H PRN IV 04/02/18 21:15 (K-Lyte Cl Eff) 50 meq UNSCH PRN PO 04/02/18 21:15 Potassium Chloride 100 ml @ 25 mls/hr UNSCH PRN IV 04/02/18 21:15 Potassium Chloride 100 ml @ 50 mls/hr Q2H PRN IV 04/02/18 21:15 Magnesium Sulfate 4 gm/Sodium Chloride 100 ml @ 50 mls/hr UNSCH PRN IV 04/02/18 21:15 (Mag-Ox) 800 mg UNSCH PRN PO 04/02/18 21:15 Magnesium Sulfate 2 gm/Sodium Chloride 100 ml @ 50 mls/hr UNSCH PRN IV 04/02/18 21:15 (K-Phos) 2,000 mg Q4H PRN PO 04/02/18 21:15 Sodium Phosphate 30 mmol/Sodium Chloride 250 ml @ 42 mls/hr UNSCH PRN IV 04/02/18 21:15 (K-Phos) 2,000 mg UNSCH PRN PO/TUBE 04/02/18 21:15 Potassium Phosphate 30 mmol/ Sodium Chloride 260 ml @ 42 mls/hr UNSCH PRN IV 04/02/18 21:15 Vital Signs / I&O Vital Signs Date Time Temp Pulse Resp B/P (MAP) Pulse Ox O2 Delivery O2 Flow Rate FiO2 04/03/18 04:07 22 04/03/18 03:00 86 04/03/18 03:00 86 04/03/18 03:00 98.3 86 22 128/83 (98) 99 125/53 (77) 04/02/18 23:00 84 04/02/18 23:00 98.9 84 22 117/62 (80) 99 103/45 (64) 04/02/18 23:00 84 04/02/18 22:35 99 Nasal Cannula 2.50 04/02/18 19:00 113 04/02/18 19:00 113 04/02/18 19:00 98.9 113 22 144/85 (104) 99 131/66 (87) 04/02/18 17:00 98 04/02/18 17:00 64 105/47 04/02/18 16:25 60 04/02/18 15:30 94 04/02/18 15:25 94 211/116 04/02/18 15:00 81 04/02/18 15:00 69 04/02/18 15:00 97.4 81 18 142/82 (102) 94 150/80 (103) 04/02/18 14:50 69 04/02/18 14:50 97.4 69 16 161/81 (107) 95 165/74 (104) 04/02/18 13:25 98 211/116 04/02/18 10:55 98.0 91 18 119/76 (90) 95 I/O 04/02/18 04/02/18 04/02/18 04/03/18 04/03/18 04/03/18 07:00 15:00 23:00 07:00 15:00 23:00 Intake Total 800 ml 220 ml 490 ml Output Total 350 ml 550 ml 1375 ml Balance 450 ml -330 ml -885 ml Intake Oral 120 ml 240 ml IV Total 100 ml 250 ml Other 800 ml Output Urine Total 150 ml 550 ml 1375 ml Estimated Blood Loss 200 ml Physical Exam GENERAL: Well-developed well-nourished. In no acute distress. NECK: No carotid bruits. No JVD. Right jugular line in place. CARDIOVASCULAR: Regular rate and rhythm. [place] heart sounds appreciated. Right groin with no swelling or ecchymosis, mild tenderness peer RESPIRATORY: No accessory muscle use. Clear to auscultation. Breath sounds equal bilaterally. MUSCULOSKELETAL: No clubbing or cyanosis. No edema. NEUROLOGICAL: Awake and alert. Normal speech. Laboratory Laboratory Tests Test 04/02/18 16:45 04/03/18 04:05 White Blood Count 16.2 TH/MM3 12.6 TH/MM3 Red Blood Count 4.13 MIL/MM3 3.91 MIL/MM3 Hemoglobin 12.0 GM/DL 11.4 GM/DL Hematocrit 36.8 % 34.5 % Mean Corpuscular Volume 89.1 FL 88.4 FL Mean Corpuscular Hemoglobin 29.1 PG 29.1 PG Mean Corpuscular Hemoglobin Concent 32.6 % 32.9 % Red Cell Distribution Width 15.0 % 14.8 % Platelet Count 274 TH/MM3 235 TH/MM3 Mean Platelet Volume 7.6 FL 7.2 FL Prothrombin Time 10.9 SEC Prothromb Time International Ratio 1.1 RATIO Activated Partial Thromboplast Time 26.7 SEC Blood Urea Nitrogen 16 MG/DL 9 MG/DL Creatinine 0.50 MG/DL 0.34 MG/DL Random Glucose 127 MG/DL 94 MG/DL Calcium Level 7.9 MG/DL 8.1 MG/DL Sodium Level 141 MEQ/L 140 MEQ/L Potassium Level 3.2 MEQ/L 3.8 MEQ/L Chloride Level 104 MEQ/L 104 MEQ/L Carbon Dioxide Level 26.0 MEQ/L 29.5 MEQ/L Anion Gap 11 MEQ/L 7 MEQ/L Estimat Glomerular Filtration Rate 123 ML/MIN 192 ML/MIN Phosphorus Level 2.8 MG/DL Magnesium Level 1.9 MG/DL Imaging Last Impressions Chest X-Ray 04/02/18 0000 Signed Impressions: CONCLUSION: Mild cardiomegaly without failure. (Georges Mars) Assessment and Plan Assessment and Plan 67-year-old female past medical history of severe now s/p successful TAVR The patient did develop transient heart block during the procedure requiring transvenous pacing. Currently NSR w/ RBBB; going for EP study today to decide + /- PPM. Limited echo today Discussed Condition With Patient, RN, Dr. Villalta (Georges Mars) Assessment and Plan severe - TAVR acute on chronic diastolic CHF - gentle diuresis. EP evaluation today and probable PPM possible DC planning for tomorrow (Osorio Villalta MD) Georges Mars Apr 03, 2018 07:49 Osorio Villalta MD Apr 03, 2018 08:51
[2018-04-03] MEDS: ASPIRIN 81 MG CHEW TAB PO SCH (08:59)
[2018-04-03] MEDS: CLOPIDOGREL 75 MG TAB PO SCH (08:59)
[2018-04-03] MEDS: PRAMIPEXOLE DIHYDROCHLORIDE 0.25 MG TAB PO SCH ×3 (08:59→18:12)
[2018-04-03] MEDS: ISOSORBIDE MONONITRATE 30 MG CR TAB (IMDUR) PO SCH (09:00)
[2018-04-03] MEDS ORDERED: ASPIRIN EC 81 MG TABEC PO SCH (09:00)
[2018-04-03] MEDS ORDERED: amLODIPine BESYLATE 5 MG TAB PO SCH (09:00)
[2018-04-03] MEDS: FUROSEMIDE 20 MG TAB PO SCH (09:01)
--- NOTE | 2018-04-03 09:17 | PD.CAR.PN ---
CVT Progress Note Subjective/Hospital Course: 67-year-old female with a history of severe aortic stenosis who presents for elective transcatheter aortic valve replacement. She underwent uncomplicated procedure via common iliac access. Per [facility] intraoperatively she did go into third-degree heart block. Elective physiology consult was placed Past Medical History: Severe symptomatic aortic stenosis, Coronary artery disease, Carotid stenosis, Asthma, Hyperlipidemia, Mild mitral regurgitation, Osteoarthritis, Osteopenia, Right bundle branch block, Parkinson's disease Prior CABG 2 04/03 pt for EP study this am still intermittent paced / BP stable up in chair , on room air Objective: GENERAL: SKIN: Warm and dry. Dressing both groins intact , no hematoma HEAD: Normocephalic. EYES: No scleral icterus. No injection or drainage. NECK: Supple, trachea midline. No JVD or lymphadenopathy. CARDIOVASCULAR: Regular rate and rhythm without murmurs, gallops, or rubs. intermittent paced, temp pacer in place , RESPIRATORY: Breath sounds equal bilaterally. No accessory muscle use. GASTROINTESTINAL: Abdomen soft, non-tender, nondistended. MUSCULOSKELETAL: No cyanosis, or edema. BACK: Nontender without obvious deformity. No CVA tenderness. Vital Signs Date Time Temp Pulse Resp B/P (MAP) Pulse Ox O2 Delivery O2 Flow Rate FiO2 04/03/18 08:00 72 04/03/18 08:00 98.4 72 20 124/50 (74) 92 Arterial Line 04/03/18 07:00 84 04/03/18 04:07 22 04/03/18 03:00 86 04/03/18 03:00 86 04/03/18 03:00 98.3 86 22 128/83 (98) 99 125/53 (77) 04/02/18 23:00 84 04/02/18 23:00 98.9 84 22 117/62 (80) 99 103/45 (64) 04/02/18 23:00 84 04/02/18 22:35 99 Nasal Cannula 2.50 04/02/18 19:00 113 04/02/18 19:00 113 04/02/18 19:00 98.9 113 22 144/85 (104) 99 131/66 (87) 04/02/18 17:00 98 04/02/18 17:00 64 105/47 04/02/18 16:25 60 04/02/18 15:30 94 04/02/18 15:25 94 211/116 04/02/18 15:00 81 04/02/18 15:00 69 04/02/18 15:00 97.4 81 18 142/82 (102) 94 150/80 (103) 04/02/18 14:50 69 04/02/18 14:50 97.4 69 16 161/81 (107) 95 165/74 (104) 04/02/18 13:25 98 211/116 04/02/18 10:55 98.0 91 18 119/76 (90) 95 Labs: Laboratory Tests Test 04/03/18 04:05 White Blood Count 12.6 TH/MM3 (4.0-11.0) Red Blood Count 3.91 MIL/MM3 (4.00-5.30) Hemoglobin 11.4 GM/DL (11.6-15.3) Hematocrit 34.5 % (35.0-46.0) Mean Corpuscular Volume 88.4 FL (80.0-100.0) Mean Corpuscular Hemoglobin 29.1 PG (27.0-34.0) Mean Corpuscular Hemoglobin Concent 32.9 % (32.0-36.0) Red Cell Distribution Width 14.8 % (11.6-17.2) Platelet Count 235 TH/MM3 (150-450) Mean Platelet Volume 7.2 FL (7.0-11.0) Blood Urea Nitrogen 9 MG/DL (7-18) Creatinine 0.34 MG/DL (0.50-1.00) Random Glucose 94 MG/DL (74-106) Calcium Level 8.1 MG/DL (8.5-10.1) Phosphorus Level 2.8 MG/DL (2.5-4.9) Magnesium Level 1.9 MG/DL (1.5-2.5) Sodium Level 140 MEQ/L (136-145) Potassium Level 3.8 MEQ/L (3.5-5.1) Chloride Level 104 MEQ/L (98-107) Carbon Dioxide Level 29.5 MEQ/L (21.0-32.0) Anion Gap 7 MEQ/L (5-15) Estimat Glomerular Filtration Rate 192 ML/MIN (>89) Result Diagram: 04/03/1840404/03/18 040 (1) S/P TAVR (transcatheter aortic valve replacement) Plan: Procedure: 1. Transcatheter Aortic Valve Replacement (TAVR) with an Flores 23 mm Zak 3 Tissue Valve. 2. Balloon Aortic Valvuloplasty 3. Aortogram. 4. Percutaneous Bilateral Common Femoral Artery Access 5. Perclose closure of Right Common Femoral artery. 6. Vascade closure of Left Common Femoral artery. ASA, Plavix for EP study today will defer further orders/ and discharge to Dr Villalta will see prn (2) Aortic stenosis Riut Fermin Apr 03, 2018 09:17
[2018-04-03] MEDS ORDERED: POVIDONE IODINE 5% (ANTISEPSIS KIT) 4 APPLICATIONS EACH NARE SCH (10:00)
[2018-04-03] MEDS ORDERED: CHLORHEXIDINE GLUCONATE 2 % 1 PACK (2 CLOTHS) TOP SCH (10:00)
[2018-04-03] MEDS ORDERED: MUPIROCIN 2% OINT 1 APPLIC/GM SYR NASAL SCH (10:00)
--- NOTE | 2018-04-03 10:21 | MB ---
cc: Vinayak Fontanez MD,Jessica Steel,Zuhair Villalta,Osorio Watson MD DATE: 04/03/2018 REASON FOR CONSULTATION: AV block. HISTORY OF PRESENT ILLNESS: Mrs. Tapia is a 57-year-old female with aortic stenosis, status post TAVR. During the procedure, she developed complete AV block. There is a long first degree AV block at this point, also. I was consulted for evaluation for pacer insertion. The chart was reviewed. The patient was evaluated. ALLERGIES: ATORVASTATIN, ZITHROMAX. SOCIAL HISTORY: Negative for smoking and drinking. FAMILY HISTORY: Noncontributory to her current medical condition. MEDICATIONS: 1. Plavix. 2. Aspirin. 3. Amlodipine 2.5 mg a day. 4. Carbidopa/levodopa 25/100 three times a day. 5. Imdur 30 mg a day. REVIEW OF SYSTEMS: Currently, she refers no chest pain or chest discomfort. No fever. PHYSICAL EXAMINATION: GENERAL: Alert, fully alert, oriented in bed. She has some slight tremor also. VITAL SIGNS: Blood pressure 124/50, pulse around 70, respiratory rate 18. NECK: The right jugular area with central access with a temporary pacemaker. LUNGS: Ventilated. CARDIOVASCULAR: S1, S2. Regular. ABDOMEN: Obese. No mass. EXTREMITIES: No edema. LABORATORY DATA: Electrocardiogram at baseline shows sinus rhythm, right bundle branch block with a first degree AV block, also. There is a significant change in the new electrocardiogram post-procedure. The first-degree of loss or is more pronounced at this point on the echocardiogram was post-procedure. ASSESSMENT AND RECOMMENDATIONS: Ms. Tapia has complete AV block during the above deployment. She continued even after the procedure. Apparently conduction resumed during the night, but because the patient has AV block and the OK interval is more prolonged, by guidelines she will need a pacemaker. The risk of AV block is very high. The risks, the nature and the benefits of the procedure were clearly stated to her. The risks include pneumothorax, cardiac perforation, stroke and even . She understood and agreed to proceed. Procedure will be performed during hospitalization. Vinayak Fontanez MD HS/DL , 10:03 AM , 10:20 AM
[2018-04-03] MEDS ORDERED: FAMOTIDINE 20 MG/2 ML VIAL ONE (10:29)
[2018-04-03] MEDS ORDERED: LIDOCAINE HCL 2% 20 ML VIAL ONE (10:53)
[2018-04-03] MEDS ORDERED: VANCOMYCIN HCL 1000 MG VIAL ONE (10:54)
[2018-04-03] MEDS ORDERED: ceFAZolin INJ 1,000 MG VIAL ONE (10:54)
[2018-04-03] MEDS ORDERED: SODIUM CHLOR 0.9% 250 ML INJ 250 ML ONE (10:54)
[2018-04-03] MEDS ORDERED: VANCOMYCIN 500 MG VIAL ONE (10:54)
--- NOTE | 2018-04-03 11:05 | ECHRPT ---
Indication: EF, S/P TAVR CONCLUSIONS Normal left ventricular size. Mild concentric left ventricular hypertrophy. The left ventricular systolic function is low normal with an estimated ejection fraction in the rang e of 50- 55%. The left atrial size is mildly dilated. Status-post percutaneous aortic valve replacement. Aortic valve mean gradient is 16 mmHg. There is mild tricuspid valve regurgitation. The estimated pulmonary arterial pressure is 38.1 mmHg. BP: / HR: Rhythm: Atrial fibrillation, Atrial flut ter MEASUREMENTS (Male / Female) Normal Values Technical Quality:Fair 2D ECHO LV Diastolic Diameter PLAX 4.0 cm 4.2 - 5.9 / 3.9 - 5.3 cm LV Systolic Diameter PLAX 3.1 cm IVS Diastolic Thickness 1.2 cm 0.6 - 1.0 / 0.6 - 0.9 cm LVPW Diastolic Thickness 1.2 cm 0.6 - 1.0 / 0.6 - 0.9 cm LV Relative Wall Thickness 0.6 RV Internal Dim ED PLAX 2.9 cm LVOT Diameter 1.8 cm Aortic Root Diameter 2.5 cm LA Systolic Diameter LX 4.5 cm 3.0 - 4.0 / 2.7 - 3.8 cm DOPPLER AV Peak Velocity 273.0 cm/s AV Peak Gradient 29.8 mmHg AV Mean Gradient 16.0 mmHg AV Velocity Time Integral 55.0 cm LVOT Peak Velocity 69.9 cm/s LVOT Peak Gradient 2.0 mmHg LVOT Velocity Time Integral 16.2 cm AV Area Cont Eq vti 0.7 cm AV Area Cont Eq pk 0.7 cm TR Peak Velocity 265.0 cm/s TR Peak Gradient 28.1 mmHg Right Atrial Pressure 10.0 mmHg Pulmonary Artery Systolic Pressu 38.1 mmHg Right Ventricular Systolic Press 38.1 mmHg FINDINGS LEFT VENTRICLE Normal left ventricular size. Mild concentric left ventricular hypertrophy. The left ventricular systolic function is low normal with an estimated ejection fraction in the rang e of 50- 55%. RIGHT VENTRICLE Normal right ventricular size and systolic function. LEFT ATRIUM The left atrial size is mildly dilated. RIGHT ATRIUM The right atrial size is normal. ATRIAL SEPTUM Normal atrial septal thickness without atrial level shunting by limited color doppler interrogation. AORTA The aortic root and proximal ascending aorta are normal in size on limited imaging. MITRAL VALVE Structurally normal mitral valve. No mitral valve stenosis or regurgitation. AORTIC VALVE Status-post percutaneous aortic valve replacement. Aortic valve mean gradient is 16 mmHg. No paravalvular leak. No aortic valve insufficiency. TRICUSPID VALVE There is mild tricuspid valve regurgitation. The estimated pulmonary arterial pressure is 38.1 mmHg. PULMONARY VALVE No pulmonary valve regurgitation or stenosis. VESSELS The inferior vena cava is normal in size. PERICARDIUM No pericardial effusion. Osorio Villalta MD, FACC (Electronically Signed) Final Date:03 April 2018 11:04
--- NOTE | 2018-04-03 11:52 | PD.CARD ---
DUAL PPM IMPLANTATION PROCEDURE DATE: Apr 03, 2018 DUAL PPM IMPLANTATION PROCEDURE: Dual chamber permanent pacemaker implantation. INDICATIONS FOR PROCEDURE: Ms. Tapia is a 67 -year-old female SP TAVR, complete AV block was referred for pacer insertion. The risks, the nature and the benefit of the procedure were clearly stated to her . The risks include pneumothorax, cardiac perforation, stroke and even . She understood and agreed to proceed. PROCEDURE After written informed consent was obtained, the patient was transferred to the EP lab where she was prepped and draped in the usual sterile fashion. Conscious sedation was initiated and maintained throughout the procedure by the anesthesiologist. Once sedation was verified, the left infraclavicular area was with 2% Xylocaine. Using modified Seldinger technique, the left subclavian vein was cannulated on two occasions and two guidewires were advanced. Then, using a #11 blade scalpel, a 2 cm was made two fingerbreadths below the left clavicle. This incision was then taken down through the deep fascial layer using Bovie cautery and blunt dissection. Into the inferomedial direction, device pocket was dissected, then the wire was dissected into the pocket. A 2- 0 Vicryl suture was placed around the wire to prevent backbleeding. At this point, over the lateral wire, an 7-Micronesian dilator and introducer was advanced. As the dilator and wire were removed, an active fixation right ventricular pacing and sensing lead was advanced. After adequate pacing and sensing thresholds were obtained, the lead was secured in the pocket using 2-0 Ethibond suture. Then, over the remaining wire, an 7-Micronesian dilator and introducer was advanced. As the dilator and wire were removed, an active fixation right atrial pacing and sensing lead was advanced. After adequate pacing and sensing thresholds were obtained, the lead was secured into the pocket using 2-0 Ethibond suture. At that point, the pocket was copiously irrigated using antibiotic solution. This was connected to the generator and placed into the pocket. I did proceed with wound closure. The deep fascial layer was approximated using 2-0 Vicryl suture in a continuous fashion. The subcutaneous layer was approximated with 2-0 Vicryl suture in a continuous fashion. The subcuticular layer was approximated with 2-0 Vicryl suture in a continuous fashion. Dermabond adhesive was applied to the wound followed by sterile pressure dressing. There was no complication. The patient tolerated procedure. Blood loss minimal. IMPLANTED HARDWARE The permanent pacemaker is a [employer]. Model # NO2508 serial number [id number]. The right atrial pacing and sensing lead is a [employer] model number 2088TC-52, serial number [id number]. The right ventricular pacing and sensing lead is a [employer] model number 2088TC- 58, serial number [id number]. THRESHOLDS The right atrial pacing threshold in the bipolar mode was 0.75 V @ 0.4ms. milliseconds, lead impedance 490 ohms and P-wave at 3.3 millivolts. The right ventricular pacing threshold in the bipolar mode was 0.V @ 0.4 milliseconds, lead impedance 730 ohms and R-wave at the 5.8 millivolts. SETTINGS The device was set in the DDD 60, upper limit 120 beats per minute. Hysteresis and mode switch are on. CONCLUSIONS: Successful permanent pacemaker implantation, COMMENT AND RECOMMENDATION The patient will be transferred to the telemetry unit. He will be observed. When stable, he can be discharged home. Vinayak Fontanez MD Apr 03, 2018 11:52
--- NOTE | 2018-04-03 11:54 | CATHPROC ---
Patient Name: MADELINE CHAVEZ Study #: [id number] Initial MD: Vinayak Fontanez Date of : 1950 Study Date: 04/03/2018 Cardiac Catheterization Report 04/03/2018 12:07:30 PM Financial #: [id number] 1 of 9 Patient Name: MADELINE CHAVEZ Study #: [id number] Initial MD: Vinayak Fontanez Date of : 1950 Study Date: 04/03/2018 Entire Case Report Patient Information Patient Name MADELINE CHAVEZ Date of 1950 Age 67 years Financial # [id number] Gender F AlternateID Lab Number 6 Room Number 446 Height (in) 58.0 Height (cm) 147.3 BSA 1.72 Weight (lbs) 174.9 Weight (kg) 79.5 Patient Address/Phone Number Home Address [facility] Home Phone Number [facility] [address] Study Information Study Number Admission Scheduled Start Study Start [id number] Apr 02 2018 10:11AM 04/03/2018 Apr 03 2018 10:39AM [place] [facility] Cardiac Pacer/ICD Admit Source Facility Department Other [facility] - Case Management Rn Physician and Clinical Staff Initial Vinayak Morales [place] Operator Santy Sandoval RCIS(BS) Other Anesthesia, ORDNANCE MECHANIC Other Hawa Leslie,JIMENEZ Recorder Mary Lou Andrews RN Scrub Sri Reid,RT(R) Procedures Performed Procedure Lead Insertion 04/03/2018 12:07:30 PM Financial #: [id number] 2 of 9 Patient Name: MADELINE CHAVEZ Study #: [id number] Initial MD: Vinayak Fontanez Date of : 1950 Study Date: 04/03/2018 Equipment Time Mechanical Applications Engineer Description Size Mfg Part Number Used/Scraped DERMABOND, ADHESIVE SKIN [id number] 11:07 CORDIS/PACER * Used GLUE MINI *[id number] 11:07 SCL Elements acquired by [employer] BLANKET,WARM AIR CCL * Used *[id number] TP-1103 11:07 MEDLINE INDUSTRIES SUTURE, STRIP PLUS 1/2" * Used *[id number] 11:07 MEDLINE PACER RAMIREZ, LIMB * 2530 *[id number] Used [id number] 11:07 MEDLINE PACER PACK, PACER CUSTOM * Used *[id number] 11:10 [employer] PACER SAFE SHEATH, FR7, 13CM FR 7 CLS-1007 Used 11:10 [employer] MEDICAL PACER SAFE SHEATH, FR7, 13CM FR 7 CLS-1007 Used 11:08 Needle Sponge Count 2 22 Used 11:08 Needle Sponge Count 30 1 Used 11:08 Needle Sponge Count 4 4 Used SUTURE, 0 ETHIBOND [CT1] (CX21D), 8pk SUTURE, 2-0 VICRYL [CT1] (CSF809Y) SUTURE, 2-0 VICRYL [CT1] (TOX221Q) LEAD, TENDRIL STS 2088TC 11:28 [facility] 52CM 2088TC/52CM Used 52CM LEAD, TENDRIL STS 2088TC 11:23 [facility] 58CM 2088TC/58CM Used 58CM PACEMAKER, ASSURITY DR STEVENS 11:32 [facility] [id number] [facility] PAD, ELECTROSURGICAL 11:07 * [id number] *[id number] Used SURGICAL GROUNDING ORANGE 0465-3931 11:07 [employer]Dyve LUPIS. / * Used *[id number] Equipment Model, Serial, Lot Number and Expiration Data Description Model Number Serial Number Lot Number Expiration Date LEAD, TENDRIL STS 2088TC 58CM 2088TC-58 [id number] 02-03-2021 PACEMAKER, ASSURITY DR STEVENS MRI [id number] 09-05-2019 Insurance Information Insurance Payor Private Health Insurance Third Constitution Party Third Constitution Party Number HUMANA GOLD PLUS O HUMLogisticare History: Allergies Allergy Reaction azithromycin ANGIOEDEMA atorvastatin 04/03/2018 12:07:30 PM Financial #: [id number] 3 of 9 Patient Name: MADELINE CHAVEZ Study #: [id number] Initial MD: Vinayak Fontanez Date of : 1950 Study Date: 04/03/2018 History: Risk Factors Hypertension Dyslipidemia Yes Yes Prior CABG Prior CABGDate Yes 10/07/1997 Chronic Lung Disease Yes Labs Hgb (g/dl) Hct (%) WBC (l/cumm) Platelets (thousands) 11.60-17.00 35.00-51.00 4.00-11.00 150.00-450.00 11.4 34.5 12.6 235 Glucose (mg/dl) BUN (mg/dl) Creatinine (mg/dl) BUN:Creatinine (1:x) 74.00-106.00 7.00-18.00 0.50-1.30 10.00-20.00 94 9 0.3 30 Na (meq/l) K (meq/l) 136.00-145.00 3.50-5.10 140 3.8 INR (PTT:PT) 0.90-1.10 1.1 Medication Medication Total Dose (Bolus/Oral) Medication Total Dosage/Unit 2% XYLOCAINE 50 mL Medications (Bolus/Oral) Medication Time Given Dosage/Unit Administered By Reason 2% XYLOCAINE 04/03/2018 11:15:39 AM 50 mL Vinayak Fontanez 50 mL 2% XYLOCAINE given in lab by Vinayak Fontanez via Subcutaneous. Ordered by Vinayak Fontanez. Medication (Drip) Medication Time Given Dosage/Unit Concentration/Unit Diluent (ml) Solution ANCEF 04/03/2018 11:13:00 AM 2 g 2 g ANCEF given in lab by Anesthesia, ORDNANCE MECHANIC via Peripheral IV. Ordered by Vinayak Fontanez. Reason: As pe r physicians verbal order. VANCOMYCIN DRIP 04/03/2018 11:01:27 AM 1 g 1 g VANCOMYCIN DRIP given in lab by Anesthesia, ORDNANCE MECHANIC via Peripheral IV. Ordered by Vinayak Fontanez. Ninfa son: As per physicians verbal order. 04/03/2018 12:07:30 PM Financial #: [id number] 4 of 9 Patient Name: MADELINE CHAVEZ Study #: [id number] Initial MD: Vinayak Fontanez Date of : 1950 Study Date: 04/03/2018 Initial Case Assessment Cardiovascular HR Rhythm NIBP Chest Pain 104 st 134/81 0 Edema Present Skin color Skin None Normal Warm Dry Circulatory - Right Pulses Radial 2 Scale (0,1,2,3,4,d) Circulatory - Left Pulses Radial 2 Scale (0,1,2,3,4,d) Circulatory - Lower Extremities Color Lower Right Color Lower Left Normal Normal Neurological State Oriented to time-place- Alert Moves all extremities person Respiration - General Respiration Rate SpO2 (%) (B/min) 20 96 04/03/2018 12:07:30 PM Financial #: [id number] 5 of 9 Patient Name: MADELINE CHAVEZ Study #: [id number] Initial MD: Vinayak Fontanez Date of : 1950 Study Date: 04/03/2018 Final Case Assessment Cardiovascular HR NIBP 86 141/72 Edema Present Skin color Skin None Normal Warm Dry Circulatory - Right Pulses Dorsalis Pedis 1 Scale (0,1,2,3,4,d) Circulatory - Left Pulses Dorsalis Pedis 1 Scale (0,1,2,3,4,d) Circulatory - Lower Extremities Color Lower Right Color Lower Left Normal Normal Neurological State Drowsy Moves all extremities Respiration - General Respiration Rate SpO2 (%) O2 (lpm) (B/min) 14 98 4 Chronological Log Time Study Chronological Log 10:39:14 Patient arrived via Bed. 10:39:14 Patient Name, D.O.B, / Armband Verified By R.N. 10:39:15 Consent signed by the physician and the patient and verified by the Case Management Rn staff. 10:39:15 Pre-op and post- op instructions given; patient acknowledges understanding of instructions. 10:39:16 Verbal Stimulation=2 Physical Stimulation=2 Airway=2 Respiration=2 TOTAL=8. (0=absent, 1=li mited, 2=present) 10:39:17 Anesthesia at bedside. Assumes care of patient. Will 10:39:29 Patient has been NPO for More than 6Hrs. 10:39:30 Skin Breakdown- none per pt 10:39:31 RIJ transvenous pacemaker in place with NS @ KVO to venous sideport. HR 70 Ma Mv 04/03/2018 12:07:30 PM Financial #: [id number] 6 of 9 Patient Name: MADELINE CHAVEZ Study #: [id number] Initial MD: Vinayak Fontanez Date of : 1950 Study Date: 04/03/2018 10:39:31 Patient Warmer Placed on the Table. 10:39:32 Disposable Defibrillator Pads Placed On Patient. 10:39:32 Peg Prominences Protected 10:39:34 A IV was noted in the Jugular Vein (right). Grade = 0 0.9n kvo 10:39:35 A # 20 IV was noted in the Wrist (left). Grade = 0 0.9ns kvo 10:39:36 History and physical on the chart. 11:00:00 Upper Chest Prepped Times Two. 11:00:10 Table restraints applied according to hospital policy 11:00:38 Bovie ground pad applied to: left thigh Assessment: Initial Case, EI=217 BPM, Rhythm=st, JNLI=904/81 mmhg, Chest Pain=0, Edema=None, Co hansel=Normal, Skin = Warm, Dry Right Pulses: Radial=2 Left Pulses: Radial=2 11:01:18 Lower Right Extremities: Color=Normal Lower Left Extremities: Color=Normal Neurological: State=Alert, Ox3, THAKUR Respiration: Resp=20 B/min, SpO2=96 % 1 g VANCOMYCIN DRIP given in lab by Anesthesia, ORDNANCE MECHANIC via Peripheral IV. Ordered by Ankit Fontanez Reason: As per 11:01:27 physicians verbal order. 11:04:01 2% CHLORHEXIDINE GLUCONATE WASH AND NASAL SWIPE DONE PRIOR TO PROCEDURE. 11:04:50 MD arrived. First Sponge And Instrument Count Done by Sri Reid RT(R). 11:07:54 Hypo's: 4, Sponges: 30, Bovie/scratch: 2 Sutures: 10, Blades: 1, Instruments: 26, Syveck Patches: 0 Verified w BL 2 g ANCEF given in lab by Anesthesia, ORDNANCE MECHANIC via Peripheral IV. Ordered by Vinayak Fontanez. Reason: As per physicians 11:13:00 verbal order. Time Out. Correct patient, procedure, procedure equipment, site and side verified with physicia n present. Time 11:15:00 concurred by MD, individual staff and ORDNANCE MECHANIC. Time Out #2 - Consents verified, patient in correct position, all results are labled and displa yed, safety precautions 11:15:23 taken, antibiotics administered. Time out concurred by MD, individual staff and ORDNANCE MECHANIC in procedu re 11:15:36 Case Start 11:15:39 50 mL 2% XYLOCAINE given in lab by Vinayak Fontanez via Subcutaneous. Ordered by Vinayak Fontanez . 11:17:53 Vascular access was obtained in the Subclav. Vein (Lft. 11:17:55 Wire inserted 11:20:03 Vascular access was obtained in the Subclav. Vein (Lft. 11:20:23 Wire inserted 11:20:27 Reference ECG taken 11:21:59 Surgical Incision Made. 11:22:52 A pocket was created at the Lt. upper chest. 11:23:41 A SAFE SHEATH, FR7, 13CM FR 7 was advanced into the Subclav. Vein (Lft using the Modified S eldinger technique. 11:24:12 A LEAD, TENDRIL STS 2088TC 58CM 58CM was inserted and positioned in the RV. 11:25:05 Lead placement verified under fluoroscopy 04/03/2018 12:07:30 PM Financial #: [id number] 7 of 9 Patient Name: MADELINE CHAVEZ Study #: [id number] Initial MD: Vinayak Fontanez Date of : 1950 Study Date: 04/03/2018 11:25:45 The RV lead impedance and threshold being tested. 11:26:15 The RV lead was sutured to the fascia. 11:27:03 A SAFE SHEATH, FR7, 13CM FR 7 was advanced into the Subclav. Vein (Lft using the Modified S eldinger technique. 11:27:47 A LEAD, TENDRIL STS 2088TC 52CM 52CM was inserted and positioned in the RA. 11:28:06 Lead placement verified under fluoroscopy 11:30:01 The Atrial lead impedance and threshold is being tested. 11:30:10 The Atrial lead was sutured to the fascia. 11:33:01 Pocket flushed with antibiotic solution 11:33:47 A PACEMAKER, KIMBERLYN CHOUDHARY was connected and placed in the pocket. 11:34:54 Transvenous pacemaker off. 11:36:00 The pocket is being closed. Second Sponge And Instrument Count Done by Sri Reid RT(R). 11:37:05 Hypo's: 4, Sponges: 30, Bovie/scratch: 2 Sutures: 10, Blades: 1, Instruments: 26, Syveck Patches: 0 Verified w BL 11:38:23 Transvenous pacemaker removed by Dr. Fontanez. Manual pressure appplied for hemostasis x 3 min . 11:42:57 Case End (Physician broke scrub) Final Sponge And Instrument Count Done by Sri Reid RT(R). 11:43:09 Hypo's: 4, Sponges: 30, Bovie/scratch: 2 Sutures: 10, Blades: 1, Instruments: 26, Syveck Patches: 0 Verified w BL 11:44:20 Implant Procedure was performed. 11:44:42 A PPM Implant . (Dual) 11:44:50 Bedside Report will be given. 11:45:27 PACU called. Spoke to Gaby. 11:48:19 Implantable Device card placed in patient's chart. 11:48:29 The pocket was closed. 11:51:37 Steri-strips and a sterile dressing applied to site. 11:51:47 LMA was withdrawn per anesthesia and supplemental oxygen applied by NC at 4 l/min 11:53:32 A sling was placed on the affected arm. 11:54:19 Defibrillator and ground pads removed. Skin intact. Assessment: Final Case, HR=86 BPM, KSMC=741/72 mmhg, Edema=None, Color=Normal, Skin = Warm, Dry Right Pulses: Dewayne Ped=1 Left Pulses: Dewayne Ped=1 11:55:21 Lower Right Extremities: Color=Normal Lower Left Extremities: Color=Normal Neurological: State=Drowsy, THAKUR Respiration: Resp=14 B/min, SpO2=98 %, O2=4 lpm Patient moved to stretcher and trasnported to PACU with ORDNANCE MECHANIC and tech accompanying on portable O2 in stable 12:05:00 condition. 04/03/2018 12:07:30 PM Financial #: [id number] 8 of 9 Patient Name: MADELINE CHAVEZ Study #: [id number] Initial MD: Vinayak Fontanez Date of : 1950 Study Date: 04/03/2018 End Study - Contrast Media Used In Study Contrast Total Opened (mL) Total Used (mL) Total Wasted (mL) Unspecified 0 0 0 End Study - Maximum Contrast Load Max Contrast Load (mL) 1325.0 End Study - Radiation Exposure Fluoro Time (minutes) 3.2 End Study - Patient Disposition Complications Transferred To Telemetry Bed 04/03/2018 12:07:30 PM Financial #: [id number]
[2018-04-03] MEDS ORDERED: SODIUM CHLORIDE 0.9% FLUSH 10 ML FLUSH IV FLUSH PRN (12:00)
[2018-04-03] MEDS ORDERED: PHENYLEPH/NS 1000 MCG/10 ML SYR IV ONE (12:00)
[2018-04-03] MEDS ORDERED: PROPOFOL 200 MG/20 ML AMP IV ONE (12:00)
[2018-04-03] MEDS ORDERED: DO NOT ADM ANY ANTICOAGULANT DRUGS PRN (12:10)
--- NOTE | 2018-04-03 13:09 | RADRPT ---
EXAM DATE: 04/03/2018 12:59 PM EDT AGE/SEX: 67 years / Female INDICATIONS: Short of breath, evaluate for pneumothorax CLINICAL DATA: This is the patient's initial encounter. Patient reports that signs and symptoms have been present for 1 day and indicates a pain score of Nonresponsive. MEDICAL/SURGICAL HISTORY: Cardiovascular disease. CABG. Pacemaker. COMPARISON: . FINDINGS: A pacing implement is present with control pack over left upper chest. There is been interval removal of a right neck central line. There is no evidence of pneumothorax. Lungs remain symmetrically aerat ed and grossly clear. Cardiac contours are stable and satisfactory with evidence of previous sternoto my. CONCLUSION: No pneumothorax. Satisfactory pacer placement Electronically signed by: Jessee Heath MD 04/03/2018 1:08 PM EDT
--- NOTE | 2018-04-03 20:33 | EKG ---
Date Performed: 04/02/2018 Time Performed: 15:09:04 PTAGE: 67 years EKG: Probably atrial fibrillation, though very difficult to read EKG due to Baseline artifact. D emand pacing Pacemaker rhythm - no further analysis When compared to previous tracing, no comparrison made due to Similar artifact. Abnormal ECG PREVIOUS TRACING : 04/02/2018 11..38 DOCTOR: Owen Talbert Interpretating Date/Time 04/03/2018 20:32:38
--- NOTE | 2018-04-03 20:34 | EKG ---
Date Performed: 04/03/2018 Time Performed: 07:37:16 PTAGE: 67 years EKG: Sinus rhythm Right bundle branch block Possible inferior infarct - age undetermined Low QRS voltages in precordia l leads When compared to previous tracing, rhythm now appears to be Sinus. Abnormal ECG PREVIOUS TRACING : 04/02/2018 15.09 DOCTOR: Owen Talbert Interpretating Date/Time 04/03/2018 20:33:07
[2018-04-03] MEDS: NIACIN 500 MG EXTENDED RELEASE TAB PO SCH (21:00)
[2018-04-03] MEDS: ACETAMINOPHEN/HYDROcodone 325 MG/7.5 MG TAB PO PRN (22:14)
[2018-04-03] MEDS: ceFAZolin 2 GM PREMIX 50 ML IV SCH (22:15)
[2018-04-03] MEDS: SODIUM CHLORIDE 0.9% FLUSH 10 ML FLUSH IV FLUSH SCH (22:16)
[2018-04-04] VITALS (29 sets, daily range): BP systolic 82–121; BP diastolic 52–87; PULSE 68–114; RESP 16–18; TEMP 97.6–98.1; O2SAT 95–97
[2018-04-04] MEDS: ACETAMINOPHEN/HYDROcodone 325 MG/7.5 MG TAB PO PRN (04:08)
[2018-04-04] MEDS: ceFAZolin 2 GM PREMIX 50 ML IV SCH ×2 (06:17→14:12)
[2018-04-04] MEDS: CARBIDOPA/LEVODOPA 25 MG/100 MG TAB PO SCH ×2 (06:17→13:07)
--- NOTE | 2018-04-04 08:23 | EKG ---
Date Performed: 04/04/2018 Time Performed: 04:30:06 PTAGE: 67 years EKG: Probable ventricular paced rhythm Abnormal ECG PREVIOUS TRACING : 04/03/2018 17.04 No significant change from previous tracing noted. DOCTOR: Maninder Fu Interpretating Date/Time 04/04/2018 08:22:53
--- NOTE | 2018-04-04 08:41 | HHI.DS ---
Discharge Summary Admission Date Apr 02, 2018 at 10:11 Discharge Date: Apr 04, 2018 Admitting Diagnosis severe aortic valve stenosis (1) Aortic stenosis ICD Codes: I35.0 - Nonrheumatic aortic (valve) stenosis (2) S/P TAVR (transcatheter aortic valve replacement) ICD Codes: Z95.2 - Presence of prosthetic heart valve Procedures transcatheter aortic valve replacement permanent pacemaker placement CBC/BMP: 04/03/18 0405 04/03/18 0405 Significant Findings Laboratory Tests Test 04/02/18 16:45 04/03/18 04:05 White Blood Count 16.2 TH/MM3 (4.0-11.0) 12.6 TH/MM3 (4.0-11.0) Random Glucose 127 MG/DL (74-106) Calcium Level 7.9 MG/DL (8.5-10.1) 8.1 MG/DL (8.5-10.1) Potassium Level 3.2 MEQ/L (3.5-5.1) Red Blood Count 3.91 MIL/MM3 (4.00-5.30) Hemoglobin 11.4 GM/DL (11.6-15.3) Hematocrit 34.5 % (35.0-46.0) Creatinine 0.34 MG/DL (0.50-1.00) Imaging Last Impressions Chest X-Ray 04/03/18 0000 Signed Impressions: CONCLUSION: No pneumothorax. Satisfactory pacer placement PE at Discharge HEAD: Normocephalic. EYES: No scleral icterus. No injection or drainage. NECK: Supple, trachea midline. No JVD or lymphadenopathy. CARDIOVASCULAR: Regular rate and rhythm without murmurs, gallops, or rubs. RESPIRATORY: Breath sounds equal bilaterally. No accessory muscle use. GASTROINTESTINAL: Abdomen soft, non-tender, nondistended. MUSCULOSKELETAL: No cyanosis, or edema. BACK: Nontender without obvious deformity. No CVA tenderness. Hospital Course uncomplicated postoperative course EP evaluation and subsequent PPM placement Pt Condition on Discharge: Good Discharge Disposition: Discharge Home Discharge Instructions DIET: Follow Instructions for: Heart Healthy Diet Activities you can perform: Weight Bearing as Osorio Garvey MD Apr 04, 2018 08:41
[2018-04-04] MEDS ORDERED: ASPI81 PO (08:43)
[2018-04-04] MEDS ORDERED: PLAV75TA29 PO (08:43)
[2018-04-04] MEDS: ASPIRIN 81 MG CHEW TAB PO SCH (09:02)
[2018-04-04] MEDS: FUROSEMIDE 20 MG TAB PO SCH (09:02)
[2018-04-04] MEDS: PRAMIPEXOLE DIHYDROCHLORIDE 0.25 MG TAB PO SCH ×2 (09:03→13:07)
[2018-04-04] MEDS: SODIUM CHLORIDE 0.9% FLUSH 10 ML FLUSH IV FLUSH SCH (09:03)
[2018-04-04] MEDS: ISOSORBIDE MONONITRATE 30 MG CR TAB (IMDUR) PO SCH (09:03)
[2018-04-04] MEDS: CLOPIDOGREL 75 MG TAB PO SCH (09:03)
--- NOTE | 2018-04-04 10:43 | EKG ---
Date Performed: 04/03/2018 Time Performed: 17:04:36 PTAGE: 67 years EKG: Wide QRS tachycardia, possibly aberrantly conducted atrial flutter/tachycardia, cannot rule out ventricular tachycardia or atrial sensed, ventricular paced rhythm Left axis deviation Nonspecif ic intraventricular conduction delay Possible extensive infarct - age undetermined Abnormal ECG PREVIOUS TRACING : 04/03/2018 12.31 Compared to previous tracing, current rhythm has replaced p ossible atrial paced rhythm. DOCTOR: Maninder Fu Interpretating Date/Time 04/04/2018 10:42:19
[2018-04-04] MEDS: SODIUM CHLOR 0.9% 1000 ML 1,000 ML IV SCH (11:00)
--- NOTE | 2018-04-04 11:29 | EKG ---
Date Performed: 04/03/2018 Time Performed: 12:31:03 PTAGE: 67 years EKG: Sinus rhythm BORDERLINE LEFT AXIS DEVIATION RIGHT BUNDLE BRANCH BLOCK T-WAVE ABNORMALITY, CONSIDER HIGH LATERAL I SCHEMIA ABNORMAL ECG PREVIOUS TRACING : 04/03/2018 07.37 Compared to previous tracing, high lateral T wave inversion is now present. DOCTOR: Maninder Fu Interpretating Date/Time 04/04/2018 11:28:45
[2018-04-04] MEDS ORDERED: SODIUM CHLOR 0.9% 250 ML INJ 250 ML IV ONE ×2 (11:30→15:00)
== END 2018-04-04 18:15 | disposition home or self-care (01) | DRG 266 ==
LOC: HSDI 10:11 → HCVI 14:41 → HCPC 04-03 10:56
PROVIDERS: ADMIT Internal Medicine; ATTEND Internal Medicine
PROC: B246ZZ4 Ultrasonography of Right and Left Heart, Transesophageal (ICD-10-PCS; 2018-04-02)
PROC: 02RF38Z Replacement of Aortic Valve with Zooplastic Tissue, Percutaneous Approach (ICD-10-PCS; principal; 2018-04-02 12:00)
PROC: B3101ZZ Fluoroscopy of Thoracic Aorta using Low Osmolar Contrast (ICD-10-PCS; 2018-04-02 12:00)
PROC: 02H63JZ Insertion of Pacemaker Lead into Right Atrium, Percutaneous Approach (ICD-10-PCS; 2018-04-03)
PROC: 02HK3JZ Insertion of Pacemaker Lead into Right Ventricle, Percutaneous Approach (ICD-10-PCS; 2018-04-03)
PROC: 0JH606Z Insertion of Pacemaker, Dual Chamber into Chest Subcutaneous Tissue and Fascia, Open Approach (ICD-10-PCS; 2018-04-03)
DX: I08.0 Rheumatic disorders of both mitral and aortic valves (principal); I50.33 Acute on chronic diastolic (congestive) heart failure; I44.2 Atrioventricular block, complete; I65.29 Occlusion and stenosis of unspecified carotid artery; E78.5 Hyperlipidemia, unspecified; I25.10 Atherosclerotic heart disease of native coronary artery without angina pectoris; Z95.1 Presence of aortocoronary bypass graft; M85.80 Other specified disorders of bone density and structure, unspecified site; J45.909 Unspecified asthma, uncomplicated; I45.10 Unspecified right bundle-branch block; M19.90 Unspecified osteoarthritis, unspecified site; Z00.6 Encounter for examination for normal comparison and control in clinical research program; Z95.3 Presence of xenogenic heart valve; I11.0 Hypertensive heart disease with heart failure; G20 Parkinson's disease
CPT/HCPCS: 33208; 33210; 33361; 36415; 36430; 71045; 80048; 83735; 84100; 85002; 85025; 85027; 85610; 85730; 86850; 86900; 86901; 86920; 92986; 93005; 93308; 93312; 93318; 93320; 93325; 94150; C1760; C1769; C1785; C1893; C1898; C9248; G0269; J0131; J0690; J1644; J2250; J2370; J2710; J2720; J3010; J3370; J3475; J3480; J7040; J7050; J7120; P9016; Q9967

== ENCOUNTER 2018-11-17 14:33 | Inpatient (IN) ==
--- NOTE | 2018-11-17 15:41 | XR ---
EXAM DATE: 11/17/2018 3:30 PM EST AGE/SEX: 67 years / Female INDICATIONS: Chest and epigastric pain today, decrease in oxygen saturations. CLINICAL DATA: This is the patient's initial encounter. Patient reports that signs and symptoms have been present for 1 day and indicates a pain score of 10/10. MEDICAL/SURGICAL HISTORY: Cardiovascular disease. Parkinson's disease. CABG. Transaortic valve replacement COMPARISON: [facility] [place] CHEST SINGLE AP, 04/03/2018. . FINDINGS: Pacemaker left chest. History of previous bypass Cardiomegaly with mild interstitial edema. There is no alveolar consolidation, pleural effusion or pneumothorax. The portion of the bony skeleton visualized is unremarkable. CONCLUSION: Cardiomegaly with mild failure. History of previous cardiac bypass Electronically signed by: Bravo Samaniego MD Board Certified Radiologist 11/17/2018 3:40 PM EST
[2018-11-17 16:10] LABS: Baso # (Auto) 0.1 th/mm3 (0.0-0.2); Eos # (Auto) 0.1 th/mm3 (0.0-0.4); Hematocrit 38.2 % (35.0-46.0); Hemoglobin 12.5 gm/dL (11.6-15.3); Lymph # (Auto) 1.5 th/mm3 (1.0-4.8); Lymph % (Auto) 15.6 % (9.0-44.0); Mean Corpuscular HGB Conc 32.6 % (32.0-36.0); Mean Corpuscular Hemoglobin 29.2 pg (27.0-34.0); Mean Corpuscular Volume 89.5 fL (80.0-100.0); Mean Platelet Volume 7.7 fL (7.0-11.0); Mono # (Auto) 0.5 th/mm3 (0.0-0.9); Mono % (Auto) 4.8 % (0.0-8.0); Neut # (Auto) 7.5 th/mm3 (1.8-7.7); Neut % (Auto) 77.6 % (16.0-70.0); Platelet Count 230 th/mm3 (150-450); Red Blood Count 4.27 mil/mm3 (4.00-5.30); Red Cell Distribution Width 16.2 % (11.6-17.2); White Blood Count 9.6 th/mm3 (4.0-11.0)
[2018-11-17 16:20] LABS: Activated Partial Thrombo Time 26.1 sec (23.4-31.7); Prothrombin Time 9.8 sec (9.8-11.6)
[2018-11-17 16:37] LABS: Alanine Aminotransferase 44 U/L (10-53); Albumin 3.5 g/dL (3.4-5.0); Anion Gap 4 meq/L (5-15); Aspartate Aminotransferase 61 U/L (15-37); Blood Urea Nitrogen 19 mg/dL (7-18); Calcium 8.1 mg/dL (8.5-10.1); Carbon Dioxide 36.8 meq/L (21.0-32.0); Chloride 104 meq/L (98-107); Glomerular Filtration Rate 78 mL/min (>89); Glucose,Random 145 mg/dL (74-106); Potassium 3.7 meq/L (3.5-5.1); Sodium 145 meq/L (136-145)
[2018-11-17 16:40] LABS: Alkaline Phosphatase 122 U/L (45-117); Total Protein 7.4 g/dL (6.4-8.2)
--- NOTE | 2018-11-17 17:47 | CT ---
EXAM DATE: 11/17/2018 5:41 PM EST AGE/SEX: 67 years / Female INDICATIONS: Short of breath. CLINICAL DATA: This is the patient's initial encounter. Patient reports that signs and symptoms have been present for 1 day and indicates a pain score of 0/10. MEDICAL/SURGICAL HISTORY: . Parkinson's. Pacemaker. Hysterectomy. Appendectomy. Trans aortic v alve replacement. RADIATION DOSE: 22.84 CTDI (mGy) COMPARISON: C, CHEST 1V SINGLE AP, 11/17/2018. . TECHNIQUE: Volumetric scanning was performed using a multi-row detector CT scanner during bolus infu mango of 60 ml Omnipaque 350 (iohexol) nonionic water-soluble contrast as a single exam dose. The ronaldo a was post processed with a variety of visualization algorithms including full volume maximum intensi ty projection and sliding thin slab reformation. Using automated exposure control and adjustment of t he mA and/or kV according to patient size, radiation dose was kept as low as reasonably achievable to obtain optimal diagnostic quality images. DICOM format image data is available electronically for r eview and comparison. FINDINGS: Pulmonary Arteries: No filling defects are seen in the pulmonary arteries out to the subsegmental ve ssels. The left and right pulmonary arteries are normal in diameter. Lung: No consolidative infiltrates seen. There is mild streaky opacity in the left lung base most co nsistent with scarring and/or atelectasis. Effusion: None. Mediastinum: No evidence of mediastinal or hilar adenopathy. The patient is status post median rob otomy. There is an aortic valve prosthesis in place. Other: The axilla is unremarkable. CONCLUSION: 1. No evidence of pulmonary embolism. 2. Mild scarring and/or atelectasis in the left lung base. 3. Status post median sternotomy. Aortic valve prosthesis is in place. Electronically signed by: Cecil Denise MD Board Certified Radiologist 11/17/2018 5:46 PM EST
[2018-11-17] MEDS ORDERED: predniSONE 20 MG Tablet PO ONE (17:49)
--- NOTE | 2018-11-17 17:56 | ED ---
HPI General Chief complaint: Chest Pain Stated complaint: Upper Abd pain Time Seen by Provider: 11/17/18 14:50 History of Present Illness HPI narrative: Patient is a 67-year-old female with a history of TAVR in March 2018 presents emergency department for evaluation of shortness of breath. Initial saturations in room air in triage were in the 80s, she states she is been feeling very short of breath. States she had a pulmonary function test that did not show COPD. States that her primary care physician wanted her to get a sleep study. No history of congestive heart failure. She has not been having any chest pain abdominal pain nausea vomiting diarrhea constipation. Symptoms moderate, for the past few days, rapidly worsening, associated signs symptoms context as above. Related Data Home Medications Medication Instructions Recorded Confirmed albuterol sulfate 2 puff INHALATION QID PRN 11/17/18 11/17/18 amlodipine [Norvasc] 2.5 mg PO DAILY 11/17/18 11/17/18 aspirin 81 mg PO DAILY 11/17/18 11/17/18 carbidopa-levodopa 1 tab PO TID 11/17/18 11/17/18 fluticasone [Flovent HFA] 1 puff INHALATION BID 11/17/18 11/17/18 ipratropium-albuterol 3 ml INHALATION QID 11/17/18 11/17/18 lorazepam 0.5 mg PO HS PRN 11/17/18 11/17/18 meclizine 25 mg PO TID PRN 11/17/18 11/17/18 montelukast 10 mg PO DAILY 11/17/18 11/17/18 Allergies Allergy/AdvReac Type Severity Reaction Status Date / Time azithromycin Allergy Severe ANGIOEDEMA Verified 11/17/18 20:01 atorvastatin Allergy Intermediate Restlessnes Verified 11/17/18 20:01 s Review of Systems ROS: all other systems reviewed are negative [facility] Medical History Medical History Hyperlipemia (Acute) Parkinsons disease (Acute) History of hysterectomy (Acute) Pacemaker (Acute) Surgical History Surgical History History of open heart surgery (Acute) Status post transcatheter aortic valve replacement (Acute) History of carpal tunnel surgery of right wrist (Acute) History of hemorrhoidectomy (Acute) History of total right knee replacement (TKR) (Acute) Hx of appendectomy (Acute) Hx of colonoscopy (Acute) Social History Social History Smoking Status: Former smoker How Often Do You Have a Drink Containing Alcohol: Never Recent Travel in [facility] within the Last 8 Weeks: No Recent Out of Country Travel within the Last 8 Weeks: No Immunization History Tetanus Immunization: Unsure Exam Narrative Exam Narrative: GENERAL: Well-developed well-nourished, tripod position, very short of breath. SKIN: Focused skin assessment warm/dry. HEAD: Atraumatic. Normocephalic. EYES: Pupils equal and round. No scleral icterus. No injection or drainage. ENT: No nasal bleeding or discharge. Mucous membranes pink and moist. NECK: Trachea midline. No JVD. CARDIOVASCULAR: Regular rhythm with tachycardia. No murmur appreciated. RESPIRATORY: No accessory muscle use. Clear to auscultation. Breath sounds equal bilaterally. Lungs very clear with good air entry. GASTROINTESTINAL: Abdomen soft, non-tender, nondistended. Hepatic and splenic margins not palpable. MUSCULOSKELETAL: No obvious deformities. No clubbing. No cyanosis. No edema. NEUROLOGICAL: Awake and alert. No obvious cranial nerve deficits. Motor grossly within normal limits. Normal speech. PSYCHIATRIC: Appropriate mood and affect; insight and judgment normal. Course Initial Documented Vital Signs Temperature 98.1 F 11/17/18 14:40 Pulse Rate 114 H 11/17/18 14:40 Respiratory Rate 22 11/17/18 14:40 Blood Pressure 151/87 H 11/17/18 14:40 Pulse Oximetry 85 L 11/17/18 14:40 Last Documented Vital Signs Temperature 98.1 F 11/17/18 14:40 Pulse Rate 113 H 11/17/18 20:56 Respiratory Rate 18 11/17/18 20:56 Blood Pressure 110/59 L 11/17/18 20:56 Pulse Oximetry 95 11/17/18 20:56 Medical Decision Making [facility] Narrative Medical decision making narrative: Patient 67-year-old female presents emergency department for evaluation of shortness of breath. Patient's initial oxygen saturation 85 on room air, shortly after bringing back to the examination room she desaturated as low as 78. She responded quite well to 2 L nasal cannula. She has a history of TAVR in 03/2018. Patient workup here does not show any obvious signs of congestive heart failure, CT PE protocol negative for pulmonary embolism, blood work is reassuring, troponin negative, patient still remained shortness of breath and even though her lungs are clear and she does not have a history of COPD the plan is to treat her like a COPD exacerbation at this time. Her labs do have metabolic alkalosis which may be a chronic correction for chronic CO2 retention. Sleep apnea would also be on the differential. I think the patient would require admission status for her low oxygen saturation at this time for further workup. Have added a VBG which does show significant hypercapnia and a mild decrease in pH 7.27. This indicates respiratory acidosis and combined hypoxia and hypercapnic respiratory failure. Medical Screen Exam Complete: Yes Emergency Medical Condition: Yes Lab Data Result diagrams: 11/17/18 15:31 11/17/18 15:31 Lab Results 11/17/18 11/17/18 11/17/18 Range/Units 15:31 15:31 15:31 WBC 9.6 (4.0-11.0) th/mm3 RBC 4.27 (4.00-5.30) mil/mm3 Hgb 12.5 (11.6-15.3) gm/dL Hct 38.2 (35.0-46.0) % MCV 89.5 (80.0-100.0) fL MCH 29.2 (27.0-34.0) pg MCHC 32.6 (32.0-36.0) % RDW 16.2 (11.6-17.2) % Plt Count 230 (150-450) th/mm3 MPV 7.7 (7.0-11.0) fL Neut % (Auto) 77.6 H (16.0-70.0) % Lymph % (Auto) 15.6 (9.0-44.0) % Steele % (Auto) 4.8 (0.0-8.0) % Eos % (Auto) 1.0 (0.0-4.0) % Baso % (Auto) 1.0 (0.0-2.0) % Neut # (Auto) 7.5 (1.8-7.7) th/mm3 Lymph # (Auto) 1.5 (1.0-4.8) th/mm3 Steele # (Auto) 0.5 (0.0-0.9) th/mm3 Eos # (Auto) 0.1 (0.0-0.4) th/mm3 Baso # (Auto) 0.1 (0.0-0.2) th/mm3 WBC Differential . Differential Comment Auto diff final PT 9.8 (9.8-11.6) sec INR 1.0 Ratio APTT 26.1 (23.4-31.7) sec Puncture Site Patient Temperature VBG pH (7.360-7.400) VBG pCO2 (44-48) mmHG VBG pO2 (35-40) mmHG VBG HCO3 (22-26) mmol/L VBG O2 Saturation (70-76) % VBG O2 Content (9.0-17.0) Vol % VBG Base Excess (-2-2) mmol/L VBG Carboxyhemoglobin (0-4) % VBG Methemoglobin (0-2) % Hemoglobin (12.0-16.0) G/DL O2 Delivery Device Liter Flow L/M Critical Value Sodium 145 (136-145) meq/L Potassium 3.7 (3.5-5.1) meq/L Chloride 104 (98-107) meq/L Carbon Dioxide 36.8 H (21.0-32.0) meq/L Anion Gap 4 L (5-15) meq/L BUN 19 H (7-18) mg/dL Creatinine 0.74 (0.50-1.00) mg/dL Estimated GFR 78 L (>89) mL/min Random Glucose 145 H (74-106) mg/dL Calcium 8.1 L (8.5-10.1) mg/dL Total Bilirubin 0.2 (0.2-1.0) mg/dL AST 61 H (15-37) U/L ALT 44 (10-53) U/L Alkaline Phosphatase 122 H (45-117) U/L Troponin I Less than 0.02 L (0.02-0.05) ng/mL B-Natriuretic Peptide (0-100) pg/mL Total Protein 7.4 (6.4-8.2) g/dL Albumin 3.5 (3.4-5.0) g/dL 11/17/18 11/17/18 Range/Units 15:31 18:17 WBC (4.0-11.0) th/mm3 RBC (4.00-5.30) mil/mm3 Hgb (11.6-15.3) gm/dL Hct (35.0-46.0) % MCV (80.0-100.0) fL MCH (27.0-34.0) pg MCHC (32.0-36.0) % RDW (11.6-17.2) % Plt Count (150-450) th/mm3 MPV (7.0-11.0) fL Neut % (Auto) (16.0-70.0) % Lymph % (Auto) (9.0-44.0) % Steele % (Auto) (0.0-8.0) % Eos % (Auto) (0.0-4.0) % Baso % (Auto) (0.0-2.0) % Neut # (Auto) (1.8-7.7) th/mm3 Lymph # (Auto) (1.0-4.8) th/mm3 Steele # (Auto) (0.0-0.9) th/mm3 Eos # (Auto) (0.0-0.4) th/mm3 Baso # (Auto) (0.0-0.2) th/mm3 WBC Differential Differential Comment PT (9.8-11.6) sec INR Ratio APTT (23.4-31.7) sec Puncture Site Line Patient Temperature 98.6 VBG pH 7.27 L* (7.360-7.400) VBG pCO2 87 H* (44-48) mmHG VBG pO2 43 H (35-40) mmHG VBG HCO3 38 H (22-26) mmol/L VBG O2 Saturation 69 L (70-76) % VBG O2 Content 11.6 (9.0-17.0) Vol % VBG Base Excess 11.2 H (-2-2) mmol/L VBG Carboxyhemoglobin 1.3 (0-4) % VBG Methemoglobin 0.8 (0-2) % Hemoglobin 12.0 (12.0-16.0) G/DL O2 Delivery Device Nasal cannula Liter Flow 3.00 L/M Critical Value Yes Sodium (136-145) meq/L Potassium (3.5-5.1) meq/L Chloride (98-107) meq/L Carbon Dioxide (21.0-32.0) meq/L Anion Gap (5-15) meq/L BUN (7-18) mg/dL Creatinine (0.50-1.00) mg/dL Estimated GFR (>89) mL/min Random Glucose (74-106) mg/dL Calcium (8.5-10.1) mg/dL Total Bilirubin (0.2-1.0) mg/dL AST (15-37) U/L ALT (10-53) U/L Alkaline Phosphatase (45-117) U/L Troponin I (0.02-0.05) ng/mL B-Natriuretic Peptide 71 (0-100) pg/mL Total Protein (6.4-8.2) g/dL Albumin (3.4-5.0) g/dL Imaging Data Radiologist's impression: Chest X-Ray 11/17/18 14:56 CONCLUSION: Cardiomegaly with mild failure. History of previous cardiac bypass Chest CTA 11/17/18 15:48 CONCLUSION: 1. No evidence of pulmonary embolism. 2. Mild scarring and/or atelectasis in the left lung base. 3. Status post median sternotomy. Aortic valve prosthesis is in place. Discharge Plan Discharge Disposition Patient Disposition: ED Admit(ED Internal Use Only) Discharge Condition Condition: Stable Discharge Order Discharge Orders: ED Use Only Admit Order (Routine); Ordered 11/17/18 Ordered By: Henry Candelario Discharge Details Diagnosis: Acute respiratory failure with hypoxia and hypercapnia Physicians Team ED Provider: Henry Candelario Primary Care Provider: UNKNOWN, Attending Provider: Tamara Dave Other Providers: Vikram William Discharge Interventions Interventions: Vital Signs Last Done: 11/17/18 14:55 Status ED Status: Admitted Patient
[2018-11-17] MEDS ORDERED: LORazepam 0.5 MG Tablet PO PRN (18:06)
[2018-11-17] MEDS ORDERED: Bisacodyl 10 MG Supp RECTAL PRN (18:09)
--- NOTE | 2018-11-17 18:09 | P.HPIM ---
History of Present Illness Primary Care Physician: UNKNOWN Chief Complaint: sob, chest pain History of Present Illness: Patient is a pleasant 67-year-old female with PMH of Parkinson's, HLD, CHF, s/p TAVR, PM presents emergency department for evaluation of shortness of breath. Patient's initial oxygen saturation 85 on room air, shortly after bringing back to the examination room she desaturated as low as 78. She responded quite well to 2 L nasal cannula. She has a history of TAVR in 03/[address] Villalta. Patient workup here does not show any obvious signs of congestive heart failure, CT PE protocol negative for pulmonary embolism, blood work is reassuring, troponin negative, patient still remained shortness of breath and even though her lungs are clear and she does not have a history of COPD the plan is to treat her like a COPD exacerbation at this time. Her labs do have metabolic alkalosis which may be a chronic correction for chronic CO2 retention. Sleep apnea would also be on the differential. Patient mother at bedside reports h/o asthma in the past. Patient follows with cardiology Dr Naylor. Patient says she is not coughing much and doesn't have wheezing. No fever or chills. No n/v/d/c. No urinary complaints. No focal weakness. Review of Systems Review of Systems: all other systems reviewed are negative [facility] Medical History Medical History Hyperlipemia (Acute) Parkinsons disease (Acute) History of hysterectomy (Acute) Pacemaker (Acute) Surgical History Surgical History History of open heart surgery (Acute) Status post transcatheter aortic valve replacement (Acute) History of carpal tunnel surgery of right wrist (Acute) History of hemorrhoidectomy (Acute) History of total right knee replacement (TKR) (Acute) Hx of appendectomy (Acute) Hx of colonoscopy (Acute) Family History Family History Mother HLD (hyperlipidemia) Father Heart problem Social History Social History Smoking Status: Former smoker How Often Do You Have a Drink Containing Alcohol: Never Recent Travel in [facility] within the Last 8 Weeks: No Recent Out of Country Travel within the Last 8 Weeks: No Immunization History Tetanus Immunization: Unsure Medications and Allergies Allergies Allergy/AdvReac Type Severity Reaction Status Date / Time azithromycin Allergy Severe ANGIOEDEMA Unverified 04/02/18 10:53 atorvastatin Allergy Intermediate Verified 04/02/18 10:53 Home Medications Medication Instructions Recorded Confirmed Type albuterol sulfate 2 puff INHALATION QID PRN 11/17/18 11/17/18 History amlodipine [Norvasc] 2.5 mg PO DAILY 11/17/18 11/17/18 History aspirin 81 mg PO DAILY 11/17/18 11/17/18 History carbidopa-levodopa 1 tab PO TID 11/17/18 11/17/18 History fluticasone [Flovent HFA] 1 puff INHALATION BID 11/17/18 11/17/18 History ipratropium-albuterol 3 ml INHALATION QID 11/17/18 11/17/18 History lorazepam 0.5 mg PO HS PRN 11/17/18 11/17/18 History meclizine 25 mg PO TID PRN 11/17/18 11/17/18 History montelukast 10 mg PO DAILY 11/17/18 11/17/18 History Active Medications: Active Medications Albuterol (Duoneb Neb (Prn)) 1 ampul NEB Q4HR NEB PRN PRN Reason: sob/wheezing Albuterol (Duoneb Neb (Phong)) 1 ampul NEB Q6HR WHILE AWAKE NEB PHONG Aspirin (Aspirin Chew) 81 mg PO DAILY PHONG Fluticasone Propionate (Flovent Hfa 110 Mcg Inh) 1 puff INH BID PHONG Lorazepam (Ativan) 0.5 mg PO HS PRN PRN Reason: Anxiety Meclizine HCl (Antivert) 25 mg PO TID PRN PRN Reason: Nausea Non-Formulary Medication (Amlodipine [Norvasc]) 2.5 mg PO DAILY PHONG Sodium Chloride (Ns Flush) 2 ml IV.FLUSH UNSCH PRN PRN Reason: FLUSH AFTER USING IV ACCESS Physical Exam Vital signs: Vital Signs 11/17/18 14:40 11/17/18 14:55 11/17/18 15:38 Temperature 98.1 F Pulse Rate 114 H 113 H 113 H Respiratory Rate 22 24 Blood Pressure 151/87 H 142/68 H Pulse Oximetry 85 L 97 95 Intake & Output 11/16/18 11/17/18 11/17/18 18:59 06:59 18:59 Weight 86.183 kg Narrative: GENERAL: Pleasant 67 yo female, well nourished well developed appears sob. SKIN: Warm and dry. HEAD: Atraumatic. Normocephalic. EYES: Pupils equal and round. No scleral icterus. No injection or drainage. ENT: No nasal bleeding or discharge. Mucous membranes pink and moist. NECK: Trachea midline. No JVD. CARDIOVASCULAR: Slightly tachycardic. Regular rate and rhythm. RESPIRATORY: No accessory muscle use. Breath sounds decreased, poor air entry. GASTROINTESTINAL: Abdomen soft, non-tender, nondistended. Hepatic and splenic margins not palpable. MUSCULOSKELETAL: Extremities without clubbing, cyanosis, or edema. No obvious deformities. NEUROLOGICAL: Awake and alert. No obvious cranial nerve deficits. Motor grossly within normal limits. Normal speech. Fine tremor hands bilat. Results Labs CBC & Chem 7: 11/17/18 15:31 11/17/18 15:31 Imaging Impressions Chest X-Ray 11/17/18 14:56 CONCLUSION: Cardiomegaly with mild failure. History of previous cardiac bypass Chest CTA 11/17/18 15:48 CONCLUSION: 1. No evidence of pulmonary embolism. 2. Mild scarring and/or atelectasis in the left lung base. 3. Status post median sternotomy. Aortic valve prosthesis is in place. Caprini VTE Risk Assessment Caprini VTE Risk Assessment: Moderate/High Risk (score >= 2) Caprini Risk Assessment Model: Point Value = 1 Point Value = 2 Point Value = 3 Point Value = 5 Age 41-60 Minor surgery BMI > 25 kg/m2 Swollen legs Varicose veins or History of unexplained or recurrent spontaneous Oral contraceptives or hormone replacement Sepsis (< 1 month) Serious lung disease, including pneumonia (< 1 month) Abnormal pulmonary function Acute myocardial infarction Congestive heart failure (< 1 month) History of inflammatory bowel disease Medical patient at bed rest Age 61-74 Arthroscopic surgery Major open surgery (> 45 min) Laparoscopic surgery (> 45 min) Malignancy Confined to bed (> 72 hours) Immobilizing plaster cast Central venous access Age >= 75 History of VTE Family history of VTE Factor V Leiden Prothrombin [id number] Lupus anticoagulant Anticardiolipin antibodies Elevated serum homocysteine Heparin-induced thrombocytopenia Other congenital or acquired thrombophilia Stroke (< 1 month) Elective arthroplasty Hip, pelvis, or leg fracture Acute spinal cord injury (< 1 month) Prophylaxis Regimen: Total Risk Factor Score Risk Level Prophylaxis Regimen 0-1 Low Early ambulation 2 Moderate Order ONE of the following: *Sequential Compression Device (SCD) *Heparin 5000 units SQ BID 3-4 Higher Order ONE of the following medications: *Heparin 5000 units SQ TID *Enoxaparin/Lovenox 40 mg SQ daily (WT < 150 kg, CrCl > 30 mL/min) *Enoxaparin/Lovenox 30 mg SQ daily (WT < 150 kg, CrCl > 10-29 mL/min) *Enoxaparin/Lovenox 30 mg SQ BID (WT < 150 kg, CrCl > 30 mL/min) AND/OR *Sequential Compression Device (SCD) 5 or more Highest Order ONE of the following medications: *Heparin 5000 units SQ TID (Preferred with Epidurals) *Enoxaparin/Lovenox 40 mg SQ daily (WT < 150 kg, CrCl > 30 mL/min) *Enoxaparin/Lovenox 30 mg SQ daily (WT < 150 kg, CrCl > 10-29 mL/min) *Enoxaparin/Lovenox 30 mg SQ BID (WT < 150 kg, CrCl > 30 mL/min) AND *Sequential Compression Device (SCD) Assessment and Plan Plan Pleasant 67 yo female with: Chest pain SOB Acute respiratory failure. Hypoxia. Metabolic alkalosis. Hyperlipemia Parkinsons disease Pacemaker Status post transcatheter aortic valve replacement 03/[address] Villalta CXR reviewed shows cardiomegaly Will do 2D ECHO, consult cardiology if need . Trop negative x 1 will trend trops Will check BNP Start duonebs scheduled and prn, solumedrol, taper as tolerate O2 supplement by NC to keep O2 sat > 92%. Monitor O2 Consult pulm IS Restart home meds as appropriate DVT ppx lovenox Discussed Condition With: patient, family, ED physician Dr Serrano
[2018-11-17 18:30] LABS: VBG Base Excess 11.2 mmol/L (-2-2); VBG Blood Gas Oxygen Content 11.6 Vol % (9.0-17.0); VBG PCO2 87 mmHG (44-48); VBG PH 7.27 (7.360-7.400); VBG PO2 43 mmHG (35-40)
[2018-11-17] MEDS: Senna/Docusate Sodium 8.6/50 MG Tablet PO SCH (22:45)
[2018-11-17] MEDS: MethylPREDNISolone Sod Succinate Inj 40 MG/ML Vial IV.PUSH SCH (22:46)
[2018-11-17] MEDS: Enoxaparin Inj 40 MG/0.4 ML Syringe SQ SCH (22:46)
[2018-11-18] MEDS: MethylPREDNISolone Sod Succinate Inj 40 MG/ML Vial IV.PUSH SCH ×4 (04:25→22:15)
[2018-11-18 06:56] LABS: ABG Base Excess 10.4 mmol/L (-2-2); ABG PCO2 65 mmHg (38-42); ABG PO2 53 mmHg (61-120)
[2018-11-18] MEDS: amLODIPine 5 MG Tablet PO SCH (09:27)
[2018-11-18] MEDS: Montelukast 10 MG Tablet PO SCH (09:28)
[2018-11-18] MEDS: Senna/Docusate Sodium 8.6/50 MG Tablet PO SCH ×2 (09:28→22:08)
[2018-11-18 12:06] LABS: Baso % (Auto) 0.1 % (0.0-2.0); Hematocrit 39.5 % (35.0-46.0); Hemoglobin 12.6 gm/dL (11.6-15.3); Lymph # (Auto) 0.5 th/mm3 (1.0-4.8); Lymph % (Auto) 4.9 % (9.0-44.0); Mean Corpuscular HGB Conc 31.9 % (32.0-36.0); Mean Corpuscular Hemoglobin 28.5 pg (27.0-34.0); Mean Corpuscular Volume 89.3 fL (80.0-100.0); Mean Platelet Volume 8.1 fL (7.0-11.0); Mono # (Auto) 0.1 th/mm3 (0.0-0.9); Mono % (Auto) 0.6 % (0.0-8.0); Neut # (Auto) 8.9 th/mm3 (1.8-7.7); Neut % (Auto) 94.4 % (16.0-70.0); Platelet Count 242 th/mm3 (150-450); Red Blood Count 4.42 mil/mm3 (4.00-5.30); Red Cell Distribution Width 15.8 % (11.6-17.2); White Blood Count 9.4 th/mm3 (4.0-11.0)
--- NOTE | 2018-11-18 12:21 | ECG ---
Date Performed: 11/18/2018 Time Performed: 07:36:46 PTAGE: 67 years EKG: Sinus rhythm Right bundle branch block Inferior infarct - age undetermined Abnormal ECG PREVIOUS TRACING : 11/17/2018 15.05 DOCTOR: Vinayak Fontanez Interpretating Date/Time 11/18/2018 12:18:07
[2018-11-18 12:40] LABS: Anion Gap 3 meq/L (5-15); Blood Urea Nitrogen 17 mg/dL (7-18); Calcium 8.7 mg/dL (8.5-10.1); Carbon Dioxide 36.6 meq/L (21.0-32.0); Chloride 99 meq/L (98-107); Glomerular Filtration Rate Greater Than 89 mL/min (>89); Glucose,Random 243 mg/dL (74-106); Potassium 4.4 meq/L (3.5-5.1); Sodium 139 meq/L (136-145)
[2018-11-18] MEDS: Acetaminophen 325 MG Tablet PO PRN ×3 (12:41→22:07)
--- NOTE | 2018-11-18 12:42 | ECG ---
Date Performed: 11/17/2018 Time Performed: 15:05:07 PTAGE: 67 years EKG: SINUS TACHYCARDIA INDETERMINATE AXIS RIGHT BUNDLE BRANCH BLOCK ABNORMAL ECG NO PREVIOUS TRACING DOCTOR: Vinayak Fontanez Interpretating Date/Time 11/18/2018 12:34:03
--- NOTE | 2018-11-18 13:16 | ECHRPT ---
Indication: CHEST PAIN CONCLUSIONS Normal left ventricular size. Mild concentric left ventricular hypertrophy. The left ventricular sys tolic function is normal with an estimated ejection fraction in the range of 60-65%. No regional wall motion abnormalities are present. The left atrial size is mildly dilated. Asacg-qm-yeau mitral valve regurgitation. Mild mitral annular calcification. Status-post percutaneous aortic valve replacement. No aortic valve regurgitation. Aortic valve mean gradient is 26 mmHg. BP: / HR: Rhythm: Sinus MEASUREMENTS (Male / Female) Normal Values Technical Quality:Fair 2D ECHO LV Diastolic Diameter PLAX 3.8 cm 4.2 - 5.9 / 3.9 - 5.3 cm LV Systolic Diameter PLAX 2.9 cm IVS Diastolic Thickness 1.0 cm 0.6 - 1.0 / 0.6 - 0.9 cm LVPW Diastolic Thickness 1.0 cm 0.6 - 1.0 / 0.6 - 0.9 cm LV Relative Wall Thickness 0.5 RV Internal Dim ED PLAX 3.3 cm LVOT Diameter 1.7 cm Aortic Root Diameter 1.9 cm LA Systolic Diameter LX 4.6 cm 3.0 - 4.0 / 2.7 - 3.8 cm DOPPLER AV Peak Velocity 340.0 cm/s AV Peak Gradient 46.2 mmHg AV Mean Gradient 26.0 mmHg AV Velocity Time Integral 66.3 cm LVOT Peak Velocity 59.5 cm/s LVOT Peak Gradient 1.4 mmHg LVOT Velocity Time Integral 10.5 cm AV Area Cont Eq vti 0.4 cm AV Area Cont Eq pk 0.4 cm Mitral E Point Velocity 121.0 cm/s Mitral A Point Velocity 154.0 cm/s Mitral E to A Ratio 0.8 LV E' Lateral Velocity 6.9 cm/s Mitral E to LV E' Lateral Ratio 17.5 LV E' Septal Velocity 7.4 cm/s Mitral E to LV E' Septal Ratio 16.3 TR Peak Velocity 354.0 cm/s TR Peak Gradient 50.1 mmHg Right Atrial Pressure 10.0 mmHg Pulmonary Artery Systolic Pressu 60.1 mmHg Right Ventricular Systolic Press 60.1 mmHg PV Peak Velocity 131.0 cm/s PV Peak Gradient 6.9 mmHg FINDINGS LEFT VENTRICLE Normal left ventricular size. Mild concentric left ventricular hypertrophy. The left ventricular sys tolic function is normal with an estimated ejection fraction in the range of 60-65%. No regional wall motion abnormalities are present. RIGHT VENTRICLE Normal right ventricular size and systolic function. LEFT ATRIUM The left atrial size is mildly dilated. RIGHT ATRIUM The right atrial size is normal. ATRIAL SEPTUM The interatrial septum not well visualized. AORTA The aortic root and proximal ascending aorta are normal in size on limited imaging. MITRAL VALVE Vylvm-ad-vafy mitral valve regurgitation. Mild mitral annular calcification. AORTIC VALVE Status-post percutaneous aortic valve replacement. No aortic valve regurgitation. Aortic valve mean gradient is 26 mmHg. TRICUSPID VALVE Structurally normal tricuspid valve. No tricuspid valve stenosis or regurgitation. PULMONARY VALVE No pulmonary valve regurgitation or stenosis. VESSELS The inferior vena cava is normal in size. PERICARDIUM No pericardial effusion. Maninder Fu MD (Electronically Signed) Final Date:18 November 2018 13:15
--- NOTE | 2018-11-18 20:23 | P.PNIM ---
Subjective Interval history: 67-year-old female presented with worsening shortness of breath and acute hypoxic respiratory failure Patient seen and examined, doing a little better, still short of breath with exertion, now complaining of a little bit of dizziness with ambulation, denies chest pain swallow eval recommended modified barium swallow Physical Exam Vital signs: Vital Signs 11/17/18 20:56 11/17/18 21:15 11/17/18 21:35 Temperature 97.9 F Pulse Rate 113 H 116 H 112 H Respiratory Rate 18 18 Blood Pressure 110/59 L 113/63 Pulse Oximetry 95 94 L 11/17/18 23:50 11/18/18 00:05 11/18/18 03:40 Temperature 97.8 F 97.7 F Pulse Rate 115 H 107 H 107 H Respiratory Rate 18 17 Blood Pressure 110/58 L 137/67 Pulse Oximetry 95 94 L 11/18/18 04:00 11/18/18 07:20 11/18/18 08:10 Temperature 97.6 F Pulse Rate 107 H 100 H 86 Respiratory Rate 16 16 Blood Pressure 151/88 H Pulse Oximetry 96 95 11/18/18 12:00 11/18/18 12:35 11/18/18 13:29 Temperature 97.9 F Pulse Rate 101 H 104 H 106 H Respiratory Rate 16 16 Blood Pressure 138/67 Pulse Oximetry 96 11/18/18 15:30 11/18/18 16:00 Temperature 97.5 F L Pulse Rate 107 H 92 H Respiratory Rate 17 Blood Pressure 119/55 L Pulse Oximetry 97 Intake & Output 11/18/18 11/18/18 11/19/18 06:59 18:59 06:59 Intake Total 120 / 120 810 / 810 Output Total 400 / 400 1000 / 1000 Balance -280 / -280 -190 / -190 Weight 87.6 kg Intake: Oral 120 / 120 810 / 810 Output: Urine 400 / 400 1000 / 1000 Other: # Voids 1 Date of Last Bowel Movement 11/16/18 # Bowel Movements 0 0 Weight On Admission 86.6 kg Narrative: Pleasant well-developed well-nourished 67-year-old female Awake alert oriented no acute distress, tremulous Heart S1-S2 regular Lungs decreased breath sounds fair air movement some wheeze Abdomen soft nondistended positive bowel sounds Extremities no clubbing cyanosis no edema Results Labs CBC & Chem 7: 11/18/18 11:14 11/18/18 11:14 Assessment and Plan Plan ACUTE HYPOXIC RESP FAILURE - multifactorial - cont pulm tx, pulm consult cta no pe ACUTE EXACERBATION ASTHMA/COPD fev1/fvc 65% per pfts - pulm consult PARKINSONS DISEASE - cont home meds TAVR for severe 03/24/19 s/p PPM, w CAD, carotid stenosis EF 60%, hx cabg, mod phtn pap 40 per cath, trace mr DYSLIPIDEMIA cont statin DYSPHAGIA - failed speech eval, will get mbs tomorrow HTN - norvasc HYPERGLYCEMIA - steroid induced - cont iss dvt prophylaxis - sc lovenox dispo - home when stable Progress Note: Quality VTE Deep Vein Thrombosis/Pulmonary Embolism Present on Admission: No
[2018-11-18] MEDS ORDERED: Dextrose 50% in Water 50 ML Vial IV.PUSH PRN (20:29)
--- NOTE | 2018-11-18 20:43 | MB ---
cc: Jeffry Whitten MD DATE: 11/18/2018 REQUESTING PHYSICIAN: Tamara Dave MD REASON FOR CONSULTATION: Evaluate shortness of breath. HISTORY OF PRESENT ILLNESS: Ms. Tapia is a pleasant 67-year-old female who is known to me from the office. She has a history of Parkinson disease, history of coronary artery disease, status post CABG 20 years ago. She had a recent TAVR procedure done. She has not been doing well and she came to the hospital with worsening of her shortness of breath. She does not use any oxygen at home. She was found to have , oxygen saturations around 85%. She had a workup done. She had a CT of the chest that showed no pulmonary embolism. She has no fever or chills. No night sweats. No chest pain. PAST MEDICAL HISTORY: Significant for history of coronary artery disease, status post CABG 20 years ago, TAVR, congestive heart failure, hyperlipidemia, Parkinson disease, history of pacemaker placement, carpal tunnel surgery, appendectomy, history of colonoscopy. MEDICATIONS: She is currently takin. Nebulizer treatment with DuoNeb 4 times a day. 2. Norvasc 2.5 mg. 3. Aspirin 81 mg a day. 4. Sinemet 25/100 one tablet 3 times a day. 5. Lovenox 40 mg a day. 6. Flovent 110 mcg 1 puff twice a day. 7. Lorazepam 0.5 mg as needed. 8. Solu-Medrol 40 mg q.6 hours. 9. Singulair 10 mg a day. 10. Zofran p.r.n. ALLERGIES: 1. AZITHROMYCIN 2. ATORVASTATIN. SOCIAL HISTORY: She is and lives with her . She has 2 children. REVIEW OF SYSTEMS: She walks a short distance, difficulty walking because of her Parkinson disease. No headache or dizziness. No malignancy. No DVT or pulmonary embolism. PHYSICAL EXAMINATION: GENERAL: Obese, elderly female, mildly short of breath. VITAL SIGNS: Blood pressure 119/54, heart rate 107, respirations 18, temperature 97.5. HEENT: Pupils are equal and reactive to light. She has bilateral cataracts. Oral mucosa and nasal mucosa normal. NECK: Normal. CHEST: Few rhonchi. CARDIOVASCULAR: S1, S2 normal. ABDOMEN: Benign. EXTREMITIES: No edema. IMPRESSION: 1. Shortness of breath and hypoxia. No pulmonary embolism. 2. Chronic obstructive pulmonary disease. 3. Parkinson disease. 4. History of coronary artery disease, status post coronary artery bypass grafting. 5. History of transcatheter aortic valve replacement. PLAN: I discussed with the patient supplemental oxygen with oxygen walk test to see if she needs home oxygen therapy, give her a short course of steroids, aerosol treatments, Lovenox. Further treatment pending the course in the hospital. Thank you, Dr. Dave, for this consult. MD ALBER Kim/angelo , 08:06 PM , 08:15 PM
[2018-11-18] MEDS: Enoxaparin Inj 40 MG/0.4 ML Syringe SQ SCH (22:08)
[2018-11-18] MEDS: Insulin NovoLOG Aspart Correctional Sugar Inj SQ SCH (22:16)
[2018-11-19] MEDS: MethylPREDNISolone Sod Succinate Inj 40 MG/ML Vial IV.PUSH SCH ×4 (05:37→23:05)
[2018-11-19] MEDS: Montelukast 10 MG Tablet PO SCH (09:30)
[2018-11-19] MEDS: Senna/Docusate Sodium 8.6/50 MG Tablet PO SCH ×2 (09:30→21:09)
[2018-11-19] MEDS: amLODIPine 5 MG Tablet PO SCH (09:30)
[2018-11-19] MEDS: Insulin NovoLOG Aspart Correctional Sugar Inj SQ SCH ×4 (09:33→21:10)
--- NOTE | 2018-11-19 14:58 | FL ---
EXAM DATE: 11/19/2018 2:55 PM EST AGE/SEX: 67 years / Female INDICATIONS: Dysphagia. CLINICAL DATA: This is the patient's subsequent encounter. Patient reports that signs and symptoms h ave been present for 2 days and indicates a pain score of 0/10. MEDICAL/SURGICAL HISTORY: . Cardiovascular disease. Parkinson's disease. . CABG. Transaortic v alve replacement. COMPARISON: No prior exams available for comparison. FLUORO TIME: 0.12 IMAGE COUNT: 0 RADIATION DOSE: 1.281 DAP FINDINGS: A modified barium swallow was performed with speech pathology. Patient was given a variety of liquids to swallow. There is no aspiration or vestibular penetration. For a full detailed report, see report by the speech pathologist. CONCLUSION: No aspiration or vestibular penetration. Electronically signed by: Cecil Denise MD Board Certified Radiologist 11/19/2018 2:56 PM EST
--- NOTE | 2018-11-19 17:49 | P.PNIM ---
Subjective Interval history: 67-year-old female presented with worsening shortness of breath and acute hypoxic respiratory failure Patient seen and examined earlier doing better today, going for barium swallow, still sob but a little better. Physical Exam Vital signs: Vital Signs 11/18/18 20:00 11/18/18 20:35 11/18/18 23:05 Temperature 97.9 F 97.9 F Pulse Rate 107 H 100 H 103 H Respiratory Rate 20 18 18 Blood Pressure 95/49 L 136/62 Pulse Oximetry 96 98 95 11/19/18 00:00 11/19/18 04:00 11/19/18 05:10 Temperature 97.1 F L Pulse Rate 90 83 83 Respiratory Rate 18 Blood Pressure 132/63 Pulse Oximetry 97 11/19/18 07:40 11/19/18 07:41 11/19/18 08:00 Temperature 97.7 F Pulse Rate 81 85 Respiratory Rate 16 Blood Pressure 125/74 Pulse Oximetry 97 94 L 95 11/19/18 11:14 11/19/18 11:25 11/19/18 12:00 Temperature 97.6 F Pulse Rate 89 110 H 86 Respiratory Rate 20 16 Blood Pressure 124/70 Pulse Oximetry 100 Intake & Output 11/18/18 11/19/18 11/19/18 18:59 06:59 18:59 Intake Total 810 / 810 240 / 240 Output Total 1000 / 1000 400 / 400 Balance -190 / -190 -160 / -160 Weight 88 kg Intake: Oral 810 / 810 240 / 240 Output: Urine 1000 / 1000 400 / 400 Other: # Voids 1 # Bowel Movements 0 0 Narrative: Pleasant well-developed well-nourished 67-year-old female Awake alert oriented no acute distress, tremulous Heart S1-S2 regular Lungs decreased breath sounds fair air movement some wheeze Abdomen soft nondistended positive bowel sounds Extremities no clubbing cyanosis no edema Results Labs CBC & Chem 7: 11/18/18 11:14 11/18/18 11:14 Imaging Imaging: Impressions Videofluoroscopic Swallow 11/19/18 00:00 CONCLUSION: No aspiration or vestibular penetration. Assessment and Plan Plan ACUTE HYPOXIC RESP FAILURE - multifactorial - cont pulm tx, pulm consult cta no pe, for walk test ACUTE EXACERBATION ASTHMA/COPD fev1/fvc 65% per pfts - pulm consult PARKINSONS DISEASE - cont home meds TAVR for severe 03/24/19 s/p PPM, w CAD, carotid stenosis EF 60%, hx cabg, mod phtn pap 40 per cath, trace mr - stable DYSLIPIDEMIA cont statin DYSPHAGIA - failed speech eval, mbs was ok, HTN - norvasc HYPERGLYCEMIA - steroid induced - cont iss dvt prophylaxis - sc lovenox dispo - home hopefully tomorrow after walk test, wean o2 as tolerated, and arrange hhc w pt Progress Note: Quality VTE Deep Vein Thrombosis/Pulmonary Embolism Present on Admission: No
--- NOTE | 2018-11-19 17:52 | P.DCO ---
Diagnosis (1) Parkinson's disease (tremor, stiffness, slow motion, unstable posture): Status: Acute Physical Therapy Order: Evaluate and treat, Improve ambulation and Strength and gait training Occupational Therapy Order: Evaluate and treat, Improve ADL, Gross motor coordination and Fine motor coordination Home Health Nursing Order: Signs/symptoms of disease process, Oxygen administration education and Nursing assessment with vital signs Case Management Consult Case Management Consult-Home Health: Yes I have seen patient Rosa Tapia on 11/19/18. My clinical findings support the need for the requested home health care services because: Limited mobility due to disease progression, Patient has SOB, Deconditioned with increased weakness, Limited ability to care for self and High risk of falls I certify that my clinical findings support that this patient is homebound because: Hx COPD - exertion dyspnea/weakness, Unsteady gait/balance and Poor cardiac reserve
--- NOTE | 2018-11-19 19:19 | P.PNPL ---
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 Advised reg diet no Cough or sp Physical Exam Vital signs: Vital Signs 11/18/18 20:00 11/18/18 20:35 11/18/18 23:05 Temperature 97.9 F 97.9 F Pulse Rate 107 H 100 H 103 H Respiratory Rate 20 18 18 Blood Pressure 95/49 L 136/62 Pulse Oximetry 96 98 95 11/19/18 00:00 11/19/18 04:00 11/19/18 05:10 Temperature 97.1 F L Pulse Rate 90 83 83 Respiratory Rate 18 Blood Pressure 132/63 Pulse Oximetry 97 11/19/18 07:40 11/19/18 07:41 11/19/18 08:00 Temperature 97.7 F Pulse Rate 81 85 Respiratory Rate 16 Blood Pressure 125/74 Pulse Oximetry 97 94 L 95 11/19/18 11:14 11/19/18 11:25 11/19/18 12:00 Temperature 97.6 F Pulse Rate 89 110 H 86 Respiratory Rate 20 16 Blood Pressure 124/70 Pulse Oximetry 100 11/19/18 16:00 Temperature 98.3 F Pulse Rate 83 Respiratory Rate 16 Blood Pressure 130/81 Pulse Oximetry 96 Intake & Output 11/19/18 11/19/18 11/20/18 06:59 18:59 06:59 Intake Total 240 / 240 560 / 560 Output Total 400 / 400 Balance -160 / -160 560 / 560 Weight 88 kg Intake: Oral 240 / 240 560 / 560 Output: Urine 400 / 400 Other: # Voids 5 # Bowel Movements 0 2 GENERAL: Elderly WF, Mild sob SKIN: Warm and dry. HEAD: Normocephalic. EYES: No scleral icterus. No injection or drainage. NECK: Supple, trachea midline. No JVD or lymphadenopathy. CARDIOVASCULAR: Regular rate and rhythm without murmurs, gallops, or rubs. RESPIRATORY: Breath sounds equal bilaterally. No accessory muscle use. GASTROINTESTINAL: Abdomen soft, non-tender, nondistended. MUSCULOSKELETAL: No cyanosis, or edema. BACK: Nontender without obvious deformity. No CVA tenderness. Assessment and Plan - Plan IMPRESSION: 1. Shortness of breath and hypoxia. No pulmonary embolism. 2. Chronic obstructive pulmonary disease. 3. Parkinson disease. 4. History of coronary artery disease, status post coronary artery bypass grafting. 5. History of transcatheter aortic valve replacement. PLAN: Supplement 02 to keep sat >90% 02 walk test Aerosol nebs IV Solumedrol DC plans for home DW pt and her at [facility]
[2018-11-19] MEDS: Enoxaparin Inj 40 MG/0.4 ML Syringe SQ SCH (21:08)
[2018-11-20] MEDS: MethylPREDNISolone Sod Succinate Inj 40 MG/ML Vial IV.PUSH SCH ×2 (05:23→12:06)
[2018-11-20] MEDS: Insulin NovoLOG Aspart Correctional Sugar Inj SQ SCH ×4 (08:19→20:27)
[2018-11-20] MEDS: Montelukast 10 MG Tablet PO SCH (08:24)
[2018-11-20] MEDS: amLODIPine 5 MG Tablet PO SCH (08:24)
[2018-11-20] MEDS: Senna/Docusate Sodium 8.6/50 MG Tablet PO SCH ×2 (08:24→20:27)
[2018-11-20] MEDS: Acetaminophen 325 MG Tablet PO PRN (13:02)
--- NOTE | 2018-11-20 18:02 | P.DS ---
DS: Providers Date of admission: 11/17/18 18:07 Primary care physician: UNKNOWN Consults: 11/17/18 18:09 Consult to Pulmonology Routine Consulting Provider: Vikram William [employer]erred [employer] Team Member:: Jeffry Whitten Patient known to:: Jeffry Whitten Reason for Consultation: hypoxia, acute resp failure Notified:: Service Spoke with:: Cheryl Date Notified:: 11/17/18 Time Notified:: 18:22 Ordering Provider: ZOE 11/18/18 08:55 HUB Only Consult Order Routine Consulting Provider: Marco Lara Brief History from admission: Patient is a pleasant 67-year-old female with PMH of Parkinson's, HLD, CHF, s/p TAVR, PM presents emergency department for evaluation of shortness of breath. Patient's initial oxygen saturation 85 on room air, shortly after bringing back to the examination room she desaturated as low as 78. She responded quite well to 2 L nasal cannula. She has a history of TAVR in 03/[address] Villalta. Patient workup here does not show any obvious signs of congestive heart failure, CT PE protocol negative for pulmonary embolism, blood work is reassuring, troponin negative, patient still remained shortness of breath and even though her lungs are clear and she does not have a history of COPD the plan is to treat her like a COPD exacerbation at this time. Her labs do have metabolic alkalosis which may be a chronic correction for chronic CO2 retention. Sleep apnea would also be on the differential. Patient mother at bedside reports h/o asthma in the past. Patient follows with cardiology Dr Naylor. Patient says she is not coughing much and doesn't have wheezing. No fever or chills. No n/v/d/c. No urinary complaints. No focal weakness. DS: Diagnosis Discharge Diagnosis (1) Parkinson's disease (tremor, stiffness, slow motion, unstable posture): Status: Acute DS: Summary Patient is admitted and seen in consultation pulmonology Dr. Whitten. She required 5 L nasal cannula was weaned to 3 with treatment of IV steroids and pulmonary nebs. 2D echocardiogram revealed EF 60-65% with mild MR, without any acute abnormalities. Patient was seen by speech therapy where he and with some symptoms to swallow modified barium swallow was recommended which was performed without any significant abnormalities. Patient had slow improvement of her symptoms and required 3 L nasal cannula on the oxygen walk test, home O2 and physical therapy were recommended and arranged for the patient on discharge, she remained afebrile and had slow improvement of her symptoms although she still had some exertional dyspnea symptoms. Patient is status post recent T AVR. Suspected that she has some underlying follow-up with pulmonology. Outpatient pulmonary rehab is also a consideration for this patient. She is stable for discharge and outpatient follow-up. Discharge diagnosis COPD with exacerbation Parkinson's disease Coronary artery disease status post bypass grafting History of TA VR Morbid obesity with BMI of 40.7 Acute hypoxic respiratory failure Sick sinus syndrome with permanent pacemaker Carotid stenosis Pulmonary hypertension Dyslipidemia Hypertension Steroid-induced hyperglycemia Time Spent with Patient Total time spent providing and/or coordinating discharge services:32 min Quality: VTE Deep Vein Thrombosis/Pulmonary Embolism Present on Admission: No Exam Narrative Exam Narrative: Well-developed malnourished [age]-year-old white female Awake alert oriented no acute distress Heart S1-S2 regular Lungs improved air movement improved wheeze, no rhonchi no rales Abdomen obese soft nondistended positive bowel sounds Extremities no clubbing cyanosis no significant edema Results Labs on day of discharge: Labs from last 24 hours 11/20/18 11/20/18 11/20/18 17:18 12:06 07:58 POC Glucose 229 H 248 H 139 H 11/19/18 20:24 POC Glucose 254 H Impressions ITS Impressions Chest X-Ray 11/17/18 14:56 CONCLUSION: Cardiomegaly with mild failure. History of previous cardiac bypass Chest CTA 11/17/18 15:48 CONCLUSION: 1. No evidence of pulmonary embolism. 2. Mild scarring and/or atelectasis in the left lung base. 3. Status post median sternotomy. Aortic valve prosthesis is in place. Videofluoroscopic Swallow 11/19/18 00:00 CONCLUSION: No aspiration or vestibular penetration. Discharge Plan Discharge Disposition Patient Disposition: Disch W/Home Health Service Discharge Condition Condition: Stable Discharge Order Discharge Orders: Discharge Order (Routine); Ordered 11/20/18 Ordered By: Janine Kaur Physicians Team ED Provider: Henry Candelario Primary Care Provider: UNKNOWN, Attending Provider: Janine Kaur Other Providers: [employer] ; Jeffry Whitten ; Vikram William Rxs /Orders / Referrals /Forms Prescriptions: New methylprednisolone [Medrol ([place])] 4 mg tablets,dose pack 4 mg PO PER PKG DIR Qty: 21 RF: 0 Continue ipratropium-albuterol 0.5 mg-3 mg(2.5 mg base)/3 mL Solution For Nebulization 3 ml INHALATION QID RF: 0 amlodipine [Norvasc] 2.5 mg Tablet 2.5 mg PO DAILY RF: 0 lorazepam 0.5 mg Tablet 0.5 mg PO HS PRN (Reason: Anxiety) RF: 0 meclizine 25 mg Tablet 25 mg PO TID PRN (Reason: Nausea) RF: 0 aspirin 81 mg Tablet,Chewable 81 mg PO DAILY RF: 0 montelukast 10 mg Tablet 10 mg PO DAILY RF: 0 albuterol sulfate 90 mcg/actuation Hfa Aerosol Inhaler 2 puff INHALATION QID PRN (Reason: Wheezing) RF: 0 carbidopa-levodopa 25-100 mg Tablet 1 tab PO TID RF: 0 fluticasone [Flovent HFA] 110 mcg/actuation Hfa Aerosol Inhaler 1 puff INHALATION BID RF: 0 pramipexole 1 mg Tablet 1 mg PO TID RF: 0 Ambulatory Orders / Order Sets / DME: Oxygen Tank (2-5 liter) (Routine) Timeframe: 99 Days Location: Determined by Patient Ordered By: Janine Kaur Referrals: Jeffry Whitten MD [Physician] - See Instructions ( Please call the physician's office to book the appointment to be seen within [2 wks].) Vikram William MD [Physician] - See Instructions [facility], [Agency] - See Instructions UNKNOWN, [Primary Care Provider] - See Instructions Discharge Instructions Patient Printed Instructions: Methylprednisolone (By mouth), Chest Pain (ED), Using Oxygen at Home (DC), Dyspnea (DC), Hypoxia (ED), Acute Respiratory Failure (GEN) Post Discharge Care Plan Care Plan Goals: Your Health Problems: Goals to Promote Your Health: * To prevent worsening of your condition * To maintain your health at the optimal level Directions to Meet Your Goals: * Take your medications as prescribed * Follow your dietary instruction * Follow activity as directed * Keep your appointments as scheduled * Take your immunizations and boosters as scheduled * If your symptoms worsen call your PCP * If no PCP go to Urgent Care or Emergency Room Smoking is dangerous to your health. Avoid second hand smoke. You may reach the 24-hour crisis hotline for domestic abuse at . Status ED Status: Left Department
--- NOTE | 2018-11-20 18:52 | P.PNPL ---
Subjective Interval history: 67 YOWF with COPD,CAD, parkinson disease Has Mild sob On 02 2LNC Advised reg diet no Cough or sp Ambulates, desaturates on RA Physical Exam Vital signs: Vital Signs 11/19/18 20:00 11/19/18 20:22 11/19/18 23:55 Temperature 98.5 F 97.7 F Pulse Rate 100 H 70 100 H Respiratory Rate 18 18 18 Blood Pressure 111/58 L 99/56 L Pulse Oximetry 97 97 Pulse Oximetry [Exertion on Room Air] Pulse Oximetry [Exertion with Oxygen] Pulse Oximetry [Resting on Room Air] 11/20/18 00:00 11/20/18 04:00 11/20/18 05:20 Temperature 97.3 F L Pulse Rate 90 81 90 Respiratory Rate 18 Blood Pressure 122/79 Pulse Oximetry 96 Pulse Oximetry [Exertion on Room Air] Pulse Oximetry [Exertion with Oxygen] Pulse Oximetry [Resting on Room Air] 11/20/18 08:00 11/20/18 08:04 11/20/18 12:00 Temperature 97.7 F 97.8 F Pulse Rate 100 H 93 H 94 H Respiratory Rate 18 19 17 Blood Pressure 109/57 L 121/59 L Pulse Oximetry 94 L 97 98 Pulse Oximetry [Exertion on Room Air] Pulse Oximetry [Exertion with Oxygen] Pulse Oximetry [Resting on Room Air] 11/20/18 14:32 11/20/18 16:00 Temperature 97.7 F Pulse Rate 92 H Respiratory Rate 17 Blood Pressure 111/62 Pulse Oximetry 96 Pulse Oximetry [Exertion on Room Air] 86 L Pulse Oximetry [Exertion with Oxygen] 93 L Pulse Oximetry [Resting on Room Air] 91 L Intake & Output 11/19/18 11/20/18 11/20/18 18:59 06:59 18:59 Intake Total 560 / 560 240 / 240 720 / 720 Output Total 850 / 850 Balance 560 / 560 -610 / -610 720 / 720 Weight 88.4 kg Intake: Oral 560 / 560 240 / 240 720 / 720 Output: Urine 850 / 850 Other: # Voids 5 3 3 Date of Last Bowel Movement 11/16/18 11/20/18 # Bowel Movements 2 0 1 GENERAL: MBMn NAD SKIN: Warm and dry. HEAD: Normocephalic. EYES: No scleral icterus. No injection or drainage. NECK: Supple, trachea midline. No JVD or lymphadenopathy. CARDIOVASCULAR: Regular rate and rhythm without murmurs, gallops, or rubs. RESPIRATORY: Breath sounds equal bilaterally. No accessory muscle use. GASTROINTESTINAL: Abdomen soft, non-tender, nondistended. MUSCULOSKELETAL: No cyanosis, or edema. BACK: Nontender without obvious deformity. No CVA tenderness. Assessment and Plan - Plan IMPRESSION: 1. Shortness of breath and hypoxia. No pulmonary embolism. 2. Chronic obstructive pulmonary disease. 3. Parkinson disease. 4. History of coronary artery disease, status post coronary artery bypass grafting. 5. History of transcatheter aortic valve replacement. PLAN: Supplement 02 to keep sat >90% 02 walk test Aerosol [facility] Solumedrol. Prednisone 20 mg po bid. ALISA pt and her at [facility] plans for home with 02 Will FU in office.
[2018-11-20] MEDS: predniSONE 20 MG Tablet PO SCH (20:26)
[2018-11-20] MEDS: Enoxaparin Inj 40 MG/0.4 ML Syringe SQ SCH (20:26)
[2018-11-21] MEDS: amLODIPine 5 MG Tablet PO SCH (08:17)
[2018-11-21] MEDS: Montelukast 10 MG Tablet PO SCH (08:17)
[2018-11-21] MEDS: predniSONE 20 MG Tablet PO SCH (08:17)
[2018-11-21] MEDS: Senna/Docusate Sodium 8.6/50 MG Tablet PO SCH (08:19)
[2018-11-21] MEDS: Insulin NovoLOG Aspart Correctional Sugar Inj SQ SCH (08:28)
--- NOTE | 2018-11-21 11:47 | P.PNPL ---
Subjective Interval history: 67 YOWF with COPD,CAD, parkinson disease Has Mild sob On 02 2LNC Advised reg diet no Cough or sp Ambulates with Physical Exam Vital signs: Vital Signs 11/20/18 12:00 11/20/18 14:32 11/20/18 16:00 Temperature 97.8 F 97.7 F Pulse Rate 94 H 92 H Respiratory Rate 17 17 Blood Pressure 121/59 L 111/62 Pulse Oximetry 98 96 Pulse Oximetry [Exertion on Room Air] 86 L Pulse Oximetry [Exertion with Oxygen] 93 L Pulse Oximetry [Resting on Room Air] 91 L 11/20/18 19:35 11/20/18 20:00 11/20/18 23:35 Temperature 97.7 F Pulse Rate 70 89 82 Respiratory Rate 16 17 Blood Pressure 131/66 Pulse Oximetry 95 97 Pulse Oximetry [Exertion on Room Air] Pulse Oximetry [Exertion with Oxygen] Pulse Oximetry [Resting on Room Air] 11/21/18 00:00 11/21/18 03:25 11/21/18 04:00 Temperature 97.5 F L Pulse Rate 78 91 H 94 H Respiratory Rate 20 Blood Pressure 149/67 H Pulse Oximetry 96 Pulse Oximetry [Exertion on Room Air] Pulse Oximetry [Exertion with Oxygen] Pulse Oximetry [Resting on Room Air] 11/21/18 07:37 11/21/18 08:00 Temperature 97.5 F L Pulse Rate 88 89 Respiratory Rate 19 16 Blood Pressure 160/77 H Pulse Oximetry 97 97 Pulse Oximetry [Exertion on Room Air] Pulse Oximetry [Exertion with Oxygen] Pulse Oximetry [Resting on Room Air] Intake & Output 11/20/18 11/21/18 11/21/18 18:59 06:59 18:59 Intake Total 720 / 720 Output Total 600 / 600 Balance 720 / 720 -600 / -600 Weight 87.4 kg Intake: Oral 720 / 720 Output: Urine 600 / 600 Other: # Voids 3 Date of Last Bowel Movement 11/20/18 11/20/18 11/21/18 # Bowel Movements 1 0 GENERAL: MBMN NAD SKIN: Warm and dry. HEAD: Normocephalic. EYES: No scleral icterus. No injection or drainage. NECK: Supple, trachea midline. No JVD or lymphadenopathy. CARDIOVASCULAR: Regular rate and rhythm without murmurs, gallops, or rubs. RESPIRATORY: Breath sounds equal bilaterally. No accessory muscle use. GASTROINTESTINAL: Abdomen soft, non-tender, nondistended. MUSCULOSKELETAL: No cyanosis, or edema. BACK: Nontender without obvious deformity. No CVA tenderness. Assessment and Plan - Plan : IMPRESSION: 1. Shortness of breath and hypoxia. No pulmonary embolism. 2. Chronic obstructive pulmonary disease. 3. Parkinson disease. 4. History of coronary artery disease, status post coronary artery bypass grafting. 5. History of transcatheter aortic valve replacement. PLAN: Supplement 02 to keep sat >90% Aerosol nebs Prednisone 20 mg po bid. ALISA pt and her at [facility] plans for home with 02 AM//Will FU in office.
== END 2018-11-21 12:04 | disposition home health service (06) | DRG 190 ==
LOC: NEPC 14:33 → NEDA 18:07 → N04 21:17
PROVIDERS: ADMIT Internal Medicine; ATTEND Internal Medicine
DX: R73.9 Hyperglycemia, unspecified; Z68.41 Body mass index [BMI] 40.0-44.9, adult; I10 Essential (primary) hypertension; Z95.1 Presence of aortocoronary bypass graft; G20 Parkinson's disease; I25.10 Atherosclerotic heart disease of native coronary artery without angina pectoris; Z95.2 Presence of prosthetic heart valve; R13.10 Dysphagia, unspecified; E78.5 Hyperlipidemia, unspecified; Z95.0 Presence of cardiac pacemaker; E66.9 Obesity, unspecified; J96.01 Acute respiratory failure with hypoxia; J44.1 Chronic obstructive pulmonary disease with (acute) exacerbation; T38.0X5A Adverse effect of glucocorticoids and synthetic analogues, initial encounter; Z87.891 Personal history of nicotine dependence; I27.20 Pulmonary hypertension, unspecified; E87.3 Alkalosis
CPT/HCPCS: 36600; 71010; 71045; 71275; 74230; 80048; 80053; 82803; 82805; 82948; 82962; 83520; 83880; 84484; 85025; 85610; 85730; 92526; 92610; 92611; 93005; 93306; 94150; 94618; 94620; 94640; 94664; 94665; 97110; 97116; 97162; 97530; 99285; G0195; G0196; J1650; J1815; J2920; J7506; J7512; Q9967